=== PATIENT | female | born 1960 | race Asian ===

== ENCOUNTER 2024-11-07 09:37 | Outpatient (AMB) | payer OTHER, SELFPAY ==
--- NOTE | 2024-11-07 10:05 | A.OFFVIS_ITS ---
Vital Signs 11/07/24 10:08 Height 5 ft 2 in Weight 182 lb 12.211 oz BMI 33.4 BP 144/72 H Blood Pressure Location Lt brachial Position Sitting Pulse 85 Pulse Source Pulse Oximeter Intake Visit Reasons: Hyperlipidemia Intake Note: New patient externally referred for Hyperlipidemia. Retail Loan Originator Assistant Required: Yes Retail Loan Originator Assistant Language: Yoruba Retail Loan Originator Assistant Services: Retail Loan Originator Assistant Offered & Declined Accompanied by: Daughter Allergies nicotine Allergy (Unknown, Verified 11/07/24 10:05) Unknown lisinopril Adverse Reaction (Unknown, Verified 11/07/24 10:05) Unknown IV dye Allergy (Unknown, Uncoded 11/07/24 10:09) Anaphylaxis Medication List - Last Reconciled 11/07/24 by Enrique Mendoza MD albuterol sulfate 90 mcg/actuation (Ventolin HFA) inhalation ammonium lactate 12% appl topical aspirin mg PO DAILY atorvastatin mg PO DAILY betamethasone dipropionate 0.05% topical blood sugar diagnostic (FreeStyle Lite Strips) As directed cholecalciferol (vitamin D3) 1,250 mcg PO QWEEK cyanocobalamin (vitamin B-12) mcg PO DAILY dulaglutide (Trulicity) mg subcut fluticasone propionate 50 mcg/actuation intranasal irbesartan-hydrochlorothiazide 300-12.5 mg tabs PO DAILY isosorbide mononitrate ER mg PO DAILY ketotifen fumarate 0.025%(0.035%) drps ophthalmic (eye) metformin mg PO ONCE metoclopramide HCl mg PO DAILY metoprolol succinate ER mg PO DAILY omeprazole mg PO DAILY oxybutynin chloride ER mg PO DAILY tacrolimus 0.1% topical HPI Comments Details: This is a 64-year-old female referred to endocrinology for management of hyperlipidemia . Patient has a history of hyperlipidemia for 8 yrs . She has tried atorvastatin 40 mg once day but this was stopped due to intolerance and slight elevation in liver enzymes possibility of fatty liver . She is currently not on pharmacologic therapy for a month had muscle pain r . There is a no history of coronary artery disease or stroke. Father had hx of CVA There is also a history of uncontrolled diabetes type 2.On metformin and Trulicity [facility] Medical History (Updated 11/07/24 @ 10:16 by Enrique Mendoza MD) Hyperlipidemia Surgical History History of kidney surgery Hx of cholecystectomy History of ear surgery Family History Mother No known health problems Father High blood pressure Social History Alcohol intake: never Patient Tobacco Use Status: Former Tobacco user Physical Exam Vital Signs: BMI result Body Mass Index 33.4 Const Other: Absence of carotid bruits. Thyroid gland is normal size weighs about 15 g. There are no thyroid nodules palpated. There is a absence of an arcus senilis Assessment & Plan Assessment & Plan (1) Hyperlipidemia: Code(s): E78.5 - Hyperlipidemia, unspecified Category: Medical Plan: This is a 64-year-old female referred to endocrinology for management of hyperlipidemia. LDL goal should be<70. Patient is currently not on pharmacologic therapy. Because of muscle aches and increase in liver enzymes. The increase in liver enzymes is probably result of fatty liver and not related to the statin. Plan is to reinitiate a statin namely rosuvastatin 20 mg and will recheck lipid profile along with liver panel in 6 weeks. If patient tolerates rosuvastatin will titrate to keep LDL <70 or of heart disease is diagnosed <50 . If patient does not tolerate the statin, could consider use of a PCSK9 inhibitor particularly of coronary artery disease diagnosed The visit today was not for diabetes but I did take the liberty of referring the patient to a life skills educator and word processor operator. I also made an appointment for the primary care diabetes team here to manage the diabetes instruct the patient to check her point of cares pre and post meals and bring the glucometer with the to the visit. She mentioned she does not have a history of diabetes in the family and the provider that sees her for the diabetes might want to consider checking anti-tiago 65 antibody to rule out MASHA Orders: Orders Lipid Panel 6 Weeks E78.5 - Hyperlipidemia, unspecified Liver Panel Today E78.5 - Hyperlipidemia, unspecified Referrals Diabetes Education Referral E11.9 - Type 2 diabetes mellitus without complications Endocrinology Referral E11.9 - Type 2 diabetes mellitus without complications Nutrition/Dietitian Referral E11.9 - Type 2 diabetes mellitus without complications Medications: New rosuvastatin (Crestor) 20 mg PO DAILY 30 tabs 4RF Coding Level of Care Code New Pt Level 4 (96959) Diagnoses Hyperlipidemia E78.5
[2024-11-07 10:08] VITALS: BP 144/72; PULSE 85; BMI 33.4
--- OUTSIDE RECORDS SUMMARY | 2024-11-07 11:16 | XMS_ITS | Encounter Summary ---
Author Organization [facility] Address [address] [place] [address] Care Team Providers Care Pin Maker Name Role Phone Magdaleno Law MD Primary Care Provider [phone] Encounter Details Date Type Department Care Team (Late Contact Info) Description 10/24/2024 Telephone Gastroenterology - [address] [place] [phone] Kem Germain PA [address] [place] [address] [place] [phone] Social History Tobacco Use Types Packs/Day Years Used Date Smoking Tobacco: Former Cigarettes Alcohol Use Standard Drinks/Week Comments Not Currently 0 (1 standard drink = 0.6 oz pur e alcohol) Sex and Gender Information Value Date Recorded Sex Assigned at Not on file Gender Identity Not on file Sexual Orientation Not on file Job Start Date Occupation Industry Not on file Not on file Not on file documented as of this encounter Progress Notes * GHISLAINE Hunter - 10/24/2024 5:45 PM EST I spoke with pt's daughter. LFTS the same. I expected them to improve off the statin. New meds? Isorsobide and ASA as of Aug. Prednisone and antibiotic a couple of weeks ago for respiratory infection. Will re check labs in 1 mth documented in this encounter Plan of Treatment Upcoming Encounters Date Type Department Care Team ([facility] Contact Info) Description 01/23/2025 10:20 AM EDT Office Visit Gastroenterology - [address] [place] [phone] Kem Germain PA [address] [place] [phone] Scheduled Orders Name Type Priority Associated Diagnoses Orde r Schedule Hepatic function panel Lab Routine Elevated LFTs 1 Occurrences starting 10/24/2024 until 12/22/2024 documented as of this encounter Visit Diagnoses Diagnosis Elevated LFTs- Primary Other abnormal blood chemistry documented in this encounter Care Teams Pin Maker Relationship Specialty Start Date End Date Magdaleno Law MD [address] [place] [phone] PCP - General Internal Medicine 10/12/24 documented as of this encounter
--- OUTSIDE RECORDS SUMMARY | 2024-11-07 11:16 | XMS_ITS | Encounter Summary ---
Author Organization [facility] Address [address] [place] [address] Care Team Providers Care Capacitor Assembler Name Role Phone Magdaleno Law MD Primary Care Provider [phone] Reason for Visit * Reason Comments Follow-up 6 mo fu Encounter Details Date Type Department Care Team ([facility] st Contact Info) Description 10/24/2024 10:20 AM EST Office Visit Gastroenterology - [address] [phone] Kem Germain PA [address] [phone] Elevated LFTs (Primary Dx); Upper abdominal pain; Chronic constipation Social History Tobacco Use Types Packs/Day Years Used Date Smoking Tobacco: Former Cigarettes Tobacco Cessation:Counseling Given: Not Answered Alcohol Use Standard Drinks/Week Comments Not Currently 0 (1 standard drink = 0.6 oz pur e alcohol) Sex and Gender Information Value Date Recorded Sex Assigned at Not on file Gender Identity Not on file Sexual Orientation Not on file Job Start Date Occupation Industry Not on file Not on file Not on file documented as of this encounter Last Filed Vital Signs Vital Sign Reading Time Taken Comments Blood Pressure - - Pulse - - Temperature - - Respiratory Rate - - Oxygen Saturation - - Inhaled Oxygen Concentration - - Weight 83 kg (183 lb) 10/24/2024 10:23 AM EST Height 157.5 cm (5' 2 ) 10/24/2024 10:23 AM EST Body Mass Index 33.47 10/24/2024 10:23 AM EST documented in this encounter Ordered Prescriptions Prescription Sig Dispensed Refills Start Date End Da te omeprazole OTC (PriLOSEC OTC) 20 mg EC tabletIndications:Upper abdominal pain Take 1 tablet (20 mg total) by mouth 1 (one) time each day. Do not crush, chew, or split. 30 tablet 11 10/24/2024 10/24/2025 polyethylene glycol (MIRALAX) 17 gram packetIndications:Chronic constipation Take 17 g by mouth 1 (one) time each day. 1530 g 3 10/24/2024 10/24/2025 documented in this encounter Progress Notes * GHISLAINE Hunter - 10/24/2024 10:20 AM EST Subjective Last Colononscopy/EGD: Colon/EGD 07/2020 - SSA x1, left-sided tics (5 yr); EGD - nl, no specimen collected HPI: Juan Carlos Melgoza is a 64 y.o. old female who was originally referred to us by Magdaleno Law MD now presents to the gastroenterology department today for a follow up for elevated LFTs, constipation and chronic upper abdominal pain. Her daughter was present for the appointment and helped translate. I started to see her last December for the abnormal LFTs. She was holding her atorvastatin when I s aw her at that time and the AST and ALT had normalized. The abnormal LFT workup was overall unremarkable. An ultrasound in October of last year noted fatty liver. She is status postcholecystectomy. The common bile duct measured 6 mm with no filling defect. She ended up restarting the statin a couple of months later. Her LFTs have been gradually increasing since I checked last May. Spoke with her daughter in the fall about that and wanted her to follow-up with Dr. Jose Alejandro Weston about stopping the statin as I was suspicious that was the cause. The atorvastatin is listed as being taken although the patient claims she has not taken it in a month. I will repeat labs at this point. She has ongoing i ssues with constipation. She is fine as long she is taking MiraLAX although she has not been takingit. She has generalized abdominal pain postprandially. She also has chronic epigastric pain. She described right upper quadrant pain postprandially after eating meat. She was on omeprazole last year and a lot of the upper abdominal pain was better when taking it. She is not currently taking the omeprazole 20 mg at all. She denied alarm symptoms. Review of Systems Constitutional: Negative. Respiratory: Negative. Cardiovascular: Negative. Gastrointestinal: Positive for abdominal pain (RUQ, epigastric, LUQ, generalized) and constipation. Genitourinary: Negative. PROBLEM LIST: Patient Active Problem List Diagnosis Adenomatous polyp of colon Diabetes (CMS/HCC) Hyperlipidemia Eczema Gastroesophageal reflux disease without esophagitis COPD (chronic obstructive pulmonary disease) (CMS/HCC) OAB (overactive bladder) PAST MEDICAL HISTORY: No past medical history on file. PAST SURGICAL HISTORY: Past Surgical History: Procedure Laterality Date COLONOSCOPY 07/2020 SSAx1, left sided tics (5 yr) COLONOSCOPY 03/2011 nl, fair prep (5 yr) ESOPHAGOGASTRODUODENOSCOPY 07/2020 nl SOCIAL HISTORY: Social History Tobacco Use Smoking status: Former Types: Cigarettes Smokeless tobacco: Not on file Substance Use Topics Alcohol use: Not Currently FAMILY HISTORY: No family history on file. ACTIVE MEDICATIONS: Current Outpatient Medications Medication Sig Dispense Refill aspirin 81 mg EC tablet Take 1 tablet (81 mg total) by mouth 1 (one) time each day. for 90 days atorvastatin (LIPITOR) 40 mg tablet Take 1 tablet (40 mg total) by mouth at bedtime. cholecalciferol (VITAMIN D-3) 1,250 mcg (50,000 unit) capsule TAKE 1 CAPSULE BY MOUTH ONCE A WEEK DIRECTED cyanocobalamin (VITAMIN B-12) 1,000 mcg tablet Take 1 tablet (1,000 mcg total) by mouth 1 (one) time each day. irbesartan-hydroCHLOROthiazide (AVALIDE) 300-12.5 mg per tablet Take 1 tablet by mouth 1 (one) timeeach day. isosorbide mononitrate (IMDUR) 30 mg 24 hr tablet take 1 tablet by mouth every day in the morning for 90 days metFORMIN (GLUCOPHAGE) 500 mg tablet omeprazole OTC (PriLOSEC OTC) 20 mg EC tablet Take 1 tablet (20 mg total) by mouth 1 (one) time each day. Do not crush, chew, or split. Symbicort 160-4.5 mcg/actuation inhaler Inhale 2 puffs by mouth 2 (two) times a day. Trulicity 0.75 mg/0.5 mL pen injector injection INJECT 0.75MG SUBCUTANEOUSLY ONCE A WEEK Ventolin HFA 90 mcg/actuation inhaler omeprazole OTC (PriLOSEC OTC) 20 mg EC tablet Take 1 tablet (20 mg total) by mouth 1 (one) time each day. Do not crush, chew, or split. 30 tablet 11 polyethylene glycol (MIRALAX) 17 gram packet Take 17 g by mouth 1 (one) time each day. 1530 g 3 No current facility-administered medications for this visit. ALLERGIES: Allergies Allergen Reactions Iodinated Contrast Media Physical Exam Constitutional: Appearance: Normal appearance. HENT: Head: Normocephalic. Cardiovascular: Rate and Rhythm: Normal rate and regular rhythm. Pulmonary: Effort: Pulmonary effort is normal. Breath sounds: Normal breath sounds. Abdominal: General: Bowel sounds are normal. There is no distension. Palpations: Abdomen is soft. There is no mass. Tenderness: There is no abdominal tenderness (epigastric area). There is no guarding or rebound. Skin: General: Skin is warm. Neurological: Mental Status: She is alert and oriented to person, place, and time. Psychiatric: Mood and Affect: Mood normal. Behavior: Behavior normal. IMPRESSION: 1. Elevated LFTs 2. Upper abdominal pain 3. Chronic constipation Assessment/Plan Assessment & Plan Elevated LFTs Orders: Hepatic function panel; Future Upper abdominal pain Orders: Hepatic function panel; Future omeprazole OTC (PriLOSEC OTC) 20 mg EC tablet; Take 1 tablet (20 mg total) by mouth 1 (one) time each day. Do not crush, chew, or split. Chronic constipation Orders: polyethylene glycol (MIRALAX) 17 gram packet; Take 17 g by mouth 1 (one) time each day. The LFTs have gradually increased since May. I am suspicious that it is due to the statin given that it was restarted after the labs normalized. There is also fatty liver present. We are rechecking the LFTs today. She may need to discuss an alternative to atorvastatin with Dr. Law. She is seeing him tomorrow. I asked her to restart the omeprazole for the epigastric and right upper quadrant pain which do improve when she is on the omeprazole. An upper endoscopy was unremarkable in 2019 for epigastric pain and dyspepsia. A prescription was placed for MiraLAX for her to start taking daily. I suspect the generalized abdominal pain after eating is related to the constipation and her daughter will let me know if she doesnot improve once restarting omeprazole and MiraLAX. Follow up in about 3 months (around 01/22/2025). 08 pt GHISLAINE Hunter 1:01 PM EST documented in this encounter Plan of Treatment Upcoming Encounters Date Type Department Care Team (Late st Contact Info) Description 01/23/2025 10:20 AM EDT Office Visit Gastroenterology - [address] [place] [phone] Kem Germain PA [address] [place] [address] documented as of this encounter Results * (ABNORMAL) Hepatic function panel (10/24/2024 11:06 AM EST) Total Protein 7.9 6.0 - 8.0 g/dL LAB CHEMISTRY METHOD 10/24/2024 11:59 AM [facility] Albumin 3.4 3.2 - 5.0 g/dL LAB CHEMISTRY METHOD 10/24/2024 11:59 AM [facility] Total Bilirubin 0.6 0.0 - 1.4 mg/dL LAB CHEMISTRY METHOD 10/24/2024 11:59 AM [facility] Bilirubin, Direct 0.2 0.0 - 0.3 mg/dL LAB CHEMISTRY METHOD 10/24/2024 11:59 AM [facility] Bilirubin, Indirect 0.4 0.0 - 1.1 mg/dL LAB CHEMISTRY METHOD 10/24/2024 11:59 AM [facility] ALT (SGPT) 77(H) 10 - 60 unit/L LAB CHEMISTRY METHOD 10/24/2024 11:59 AM [facility] AST (SGOT) 78(H) 10 - 42 unit/L LAB CHEMISTRY METHOD 10/24/2024 11:59 AM [facility] Alkaline Phosphatase 119 42 - 121 unit/L LAB CHEMISTRY METHOD 10/24/2024 11:59 AM EST [facility] Blood Venous blood specimen / Unknown Venipuncture / Unknown 10/24/2024 11:06 AM EST 10/24/2024 11:16 AM EST Kem [facility] [address] [place] [address], documented in this encounter Visit Diagnoses Diagnosis Elevated LFTs- Primary Other abnormal blood chemistry Upper abdominal pain Chronic constipation Unspecified constipation documented in this encounter Historical Medications * This list may reflect changes made after this encounter. Medication Sig Dispensed Refills Start Date End Date omeprazole OTC (PriLOSEC OTC) 20 mg EC tablet Take 1 tablet (20 mg total) by mouth 1 (one) time each day. Do not crush, chew, or split. metFORMIN (GLUCOPHAGE) 500 mg tablet 10/12/2024 isosorbide mononitrate (IMDUR) 30 mg 24 hr tablet take 1 tablet by mouth every day in the morning for 90 days 07/27/2024 cyanocobalamin (VITAMIN B-12) 1,000 mcg tablet Take 1 tablet (1,000 mcg total) by mouth 1 (one) time each day. 09/09/2024 cholecalciferol (VITAMIN D-3) 1,250 mcg (50,000 unit) capsule TAKE 1 CAPSULE BY MOUTH ONCE A WEEK DIRECTED 08/14/2024 Ventolin HFA 90 mcg/actuation inhaler 10/22/2024 atorvastatin (LIPITOR) 40 mg tablet Take 1 tablet (40 mg total) by mouth at bedtime. 06/13/2024 aspirin 81 mg EC tablet Take 1 tablet (81 mg total) by mouth 1 (one) time each day. for 90 days 07/27/2024 Symbicort 160-4.5 mcg/actuation inhaler Inhale 2 puffs by mouth 2 (two) times a day. 10/05/2024 Trulicity 0.75 mg/0.5 mL pen injector injection INJECT 0.75MG SUBCUTANEOUSLY ONCE A WEEK 09/19/2024 irbesartan-hydroCHLORO thiazide (AVALIDE) 300-12.5 mg per tablet Take 1 tablet by mouth 1 (one) time each day. 07/25/2024 added in this encounter Care Teams Capacitor Assembler Relationship Specialty Start Date End Date Magdaleno Law MD [address] [place] [id number] PCP - General Internal Medicine 10/12/24 documented as of this encounter
--- OUTSIDE RECORDS SUMMARY | 2024-11-07 11:16 | XMS_ITS | Encounter Summary ---
Author Organization [facility] Address [address] [place] [phone] Care Team Providers Care Scheduling Representative Name Role Phone Magdaleno Law MD Primary Care Provider [phone] Encounter Details Date Type Department Care Team (Late Contact Info) Description 09/08/2024 Lab Requisition [facility] Lab [address] [facility] [place] [phone] Manule Moore MD [address] [address] Abnormal results of liver function studies Social History Tobacco Use Types Packs/Day Years Used Date Smoking Tobacco: Never Assessed Sex and Gender Information Value Date Recorded Sex Assigned at Not on file Gender Identity Not on file Sexual Orientation Not on file Job Start Date Occupation Industry Not on file Not on file Not on file documented as of this encounter Plan of Treatment Upcoming Encounters Date Type Department Care Team (Late Contact Info) Description 01/23/2025 10:20 AM EDT Office Visit Gastroenterology - 299 [facility] [address] [phone] Kem Germain PA [address] [address] documented as of this encounter Procedures Procedure Name Priority Date/Time Associated Diagnosis Comments HEPATIC FUNCTION PANEL Routine 09/08/2024 1:20 PM EST Abnormal results of liver function studies documented in this encounter Results * (ABNORMAL) Hepatic function panel (09/08/2024 1:20 PM EST) Total Protein 8.2(H) 6.0 - 8.0 g/dL LAB CHEMISTRY METHOD 09/08/2024 2:03 PM [facility] Albumin 3.9 3.2 - 5.0 g/dL LAB CHEMISTRY METHOD 09/08/2024 2:03 PM [facility] Total Bilirubin 0.5 0.0 - 1.4 mg/dL LAB CHEMISTRY METHOD 09/08/2024 2:03 PM [facility] Bilirubin, Direct 0.2 0.0 - 0.3 mg/dL LAB CHEMISTRY METHOD 09/08/2024 2:03 PM [facility] Bilirubin, Indirect 0.3 0.0 - 1.1 mg/dL LAB CHEMISTRY METHOD 09/08/2024 2:03 PM [facility] ALT (SGPT) 75(H) 10 - 60 unit/L LAB CHEMISTRY METHOD 09/08/2024 2:03 PM [facility] AST (SGOT) 55(H) 10 - 42 unit/L LAB CHEMISTRY METHOD 09/08/2024 2:03 PM [facility] Alkaline Phosphatase 115 42 - 121 unit/L LAB CHEMISTRY METHOD 09/08/2024 2:03 PM [facility] Blood Venous blood specimen / Unknown 09/08/2024 1:20 PM EST 09/08/2024 1:20 PM EST Manuel Moore MD LAB BLOOD ORDERABLE [facility] [address] [place] [address], documented in this encounter Visit Diagnoses Diagnosis Abnormal results of liver function studies Nonspecific abnormal results of liver function study documented in this encounter Care Teams Scheduling Representative Relationship Specialty Start Date End Date Magdaleno Law MD [address] [place] [phone] PCP - General Internal Medicine 10/12/24 documented as of this encounter
--- OUTSIDE RECORDS SUMMARY | 2024-11-07 11:16 | XMS_ITS | Clinical Summary ---
Author Organization LL [address] [place] [address] [place] [phone] Phone Care Team Providers Care Mission Worker Name Role Phone Clau Law MD Primary Care Provider [phone] Allergies Active Allergy Reactions Criticality Noted Date Comments Iodinated Contrast Media 10/24/2024 Medications Medication Sig Dispensed Refills Start Date End Date Status irbesartan-hydroCH LOROthiazide (AVALIDE) 300-12.5 mg per tablet Take 1 tablet by mouth 1 (one) time each day. 07/25/2024 Active Trulicity 0.75 mg/0.5 mL pen injector injection INJECT 0.75MG SUBCUTANEOUSLY ONCE A WEEK 09/19/2024 Active Symbicort 160-4.5 mcg/actuation inhaler Inhale 2 puffs by mouth 2 (two) times a day. 10/05/2024 Active aspirin 81 mg EC tablet Take 1 tablet (81 mg total) by mouth 1 (one) time each day. for 90 days 07/27/2024 Active atorvastatin (LIPITOR) 40 mg tablet Take 1 tablet (40 mg total) by mouth at bedtime. 06/13/2024 Active Ventolin HFA 90 mcg/actuation inhaler 10/22/2024 Active cholecalciferol (VITAMIN D-3) 1,250 mcg (50,000 unit) capsule TAKE 1 CAPSULE BY MOUTH ONCE A WEEK DIRECTED 08/14/2024 Active cyanocobalamin (VITAMIN B-12) 1,000 mcg tablet Take 1 tablet (1,000 mcg total) by mouth 1 (one) time each day. 09/09/2024 Active isosorbide mononitrate (IMDUR) 30 mg 24 hr tablet take 1 tablet by mouth every day in the morning for 90 days 07/27/2024 Active metFORMIN (GLUCOPHAGE) 500 mg tablet 10/12/2024 Active omeprazole OTC (PriLOSEC OTC) 20 mg EC tablet Take 1 tablet (20 mg total) by mouth 1 (one) time each day. Do not crush, chew, or split. Active polyethylene glycol (MIRALAX) 17 gram packetIndications: Chronic constipation Take 17 g by mouth 1 (one) time each day. 1530 g 3 10/24/2024 Active omeprazole OTC (PriLOSEC OTC) 20 mg EC tabletIndications: Upper abdominal pain Take 1 tablet (20 mg total) by mouth 1 (one) time each day. Do not crush, chew, or split. 30 tablet 11 10/24/2024 Active Active Problems Problem Noted Date Diagnosed Date Adenomatous polyp of colon 10/24/2024 Diabetes 10/24/2024 Hyperlipidemia 10/24/2024 Eczema 10/24/2024 Gastroesophageal reflux disease without esophagi tis 10/24/2024 COPD (chronic obstructive pulmonary disease) OAB (overactive bladder) 10/24/2024 Encounters Date Type Department Care Team Description 10/24/2024 10:20 AM EST Office Visit Gastroenterology - [address] [phone] Kem Germain PA Elevated LFTs (Primary Dx); Upper abdominal pain; Chronic constipation 10/24/2024 Telephone Gastroenterology - [address] [place] [phone] Kem Germain PA 09/13/2024 Telephone Gastroenterology - [address] [phone] Kem Germain PA 09/08/2024 Lab Requisition [facility] - Main Lab [address] [facility] [place] [phone] Manuel Moore MD Abnormal results of liver function studies from Last 3 Months Surgical History Surgery Date Site/Laterality Comments COLONOSCOPY 07/10/2020 - 08/09/2020 SSAx1, left sided tics (5 yr) ESOPHAGOGASTRODUODENOSCOPY 07/10/2020 - 08/09/2020 nl COLONOSCOPY 03/10/2011 - 04/08/2011 nl, fair prep (5 yr) Social History Tobacco Use Types Packs/Day Years [...] file Not on file Not on file Obstetrics History Last Filed Vital Signs Vital Sign Reading Time Taken Comments Blood Pressure - - Pulse - - Temperature - - Respiratory Rate - - Oxygen Saturation - - Inhaled Oxygen Concentration - - Weight 83 kg (183 lb) 10/24/2024 10:23 AM EST Height 157.5 cm (5' 2 ) 10/24/2024 10:23 AM EST Body Mass Index 33.47 10/24/2024 10:23 AM EST Plan of Treatment Upcoming Encounters Date Type Department Care Team (Late st Contact Info) Description 01/23/2025 10:20 AM EDT Office Visit Gastroenterology - [address] [facility] [address] [place] [phone] Kem Germain PA [address] [facility] [address] [place] [address] [place] [phone] Health Maintenance Due Date Last Done Comments Diabetes: Annual GFR (Glomerular Filtration Rate) 1960 Pneumococcal Vaccine: Pediatrics (0 to 5 Years) and At-Risk Patients (6 to 64 Years) (1 of 2 - PCV) 1968 Diabetes: Annual Foot Exam 1972 Diabetes: Annual Retina Eye Exam 1972 DTaP,Tdap,and Td Vaccines (1 - Tdap) 1981 Cervical Cancer Screening: Pap Smear 1983 Zoster Vaccines (1 of 2) 2012 Cholesterol Screening (Lipid Panel) 09/06/2022 Colorectal Cancer Screening: Colonoscopy 09/06/2022 Depression Screening 09/06/2022 HIV Screening 09/06/2022 Hepatitis C Screening 09/06/2022 Social Influencers of Health Screening 09/06/2022 RSV Immunization Patients 60+ Years Old (1 - Risk 60-74 years 1-dose series) 2022 COVID-19 Vaccine ( season) 2024 05/04/2021, 04/03/2021 Influenza Vaccine (#1) 2024 06/01/2017 Diabetes: Annual Urine Albumin-Creatinine Ratio (uACR) 10/24/2024 Diabetes: Blood Sugar Control Test (HGBA1C) 10/24/2024 Breast Cancer Screening 01/25/2026 01/26/20 24, 01/23/2023, 01/30/2021, Additional history exists HIB Vaccines Aged Out No longer eligi ble based on patient's age to complete this topic HPV Vaccines Aged Out No longer eligi ble based on patient's age to complete this topic Hepatitis A Vaccines Aged Out No long er eligible based on patient's age to complete this topic Hepatitis B Vaccines Aged Out No long er eligible based on patient's age to complete this topic IPV Vaccines Aged Out No longer eligi ble based on patient's age to complete this topic MMR Vaccines Aged Out No longer eligi ble based on patient's age to complete this topic Meningococcal ACWY Vaccine Aged Out N o longer eligible based on patient's age to complete this topic RSV Immunization Patients Under 20 months Aged Out No longer eligible based on patient's age to complete this topic Varicella Vaccines Aged Out No longer eligible based on patient's age to complete this topic Procedures Procedure Name Priority Date/Time Associated Diagnosis Comments HEPATIC FUNCTION PANEL Routine 10/24/2024 11:06 AM EST Elevated LFTs Upper abdominal pain HEPATIC FUNCTION PANEL Routine 09/08/2024 1:20 PM EST Abnormal results of liver function studies HITESH SCREENING DIGITAL Routine 01/26/2024 10:43 AM EDT Encounter for screening mammogram for malignant neoplasm of breast from Last 3 Months or Most Recently Relevant to Health Maintenance Results * (ABNORMAL) Hepatic function panel (10/24/2024 11:06 AM EST) Only the most recent of2 resultswithin the time period is included. Total Protein 7.9 6.0 - 8.0 g/dL [...] METHOD 10/24/2024 11:59 AM [facility] Blood Venous blood specimen / Unknown Venipuncture / Unknown 10/24/2024 11:06 AM EST 10/24/2024 11:16 AM EST Kem [facility] BLOOD ORDERABLES [facility] [address] [place] [address], * HITESH SCREENING DIGITAL (01/26/2024 10:43 AM EDT) Anatomical Region Laterality Modality Mammography 01/26/2024 10:0 4 AM EDT Narrative 01/26/2024 10:43 AM EDT [facility] Diagnostic Imaging Department [address] [place] [address] Patient: ??JUAN CARLOS MELGOZA ?/Age/Sex: 1960 - 63 - F Unit#: ??[id number] ? Location/Status: ??SPDIMAM/REG CLI ? Mnemonic/Ordering Site: ??DIGSC/SPMAM Ordering Physician: ??CLAU LAW MD [facility] Screening Digital - 01/26/24 - 1022 Report Status:Signed EXAM: [facility] Screening Digital EXAM DATE AND TIME: 01/26/2024 10:23 AM HISTORY: ??Annual screening COMPARISON: ??Multiple exams dating back to 2018 TECHNIQUE: Bilateral digital breast tomosynthesis was performed in the CC and MLO projections. Computer aided detection with Varthana 3D 3.1 was employed. TISSUE DENSITY: b. There are scattered areas of fibroglandular density. FINDINGS: No suspicious masses, grouped microcalcifications, or areas of architectural distortion are seen. The skin and vascularity are unremarkable. IMPRESSION: Stable mammographic appearance of the breasts. ??No evidence of malignancy is seen. A negative mammogram in the presence of a clinically suspicious palpable abnormality does not preclude the possibility of malignancy or alter the indications for biopsy. BI-RADS: ??Category 1: Negative RECOMMENDATION(S): 1: Routine screening mammogram BILATERAL in 1 year. 3341F, 7025F Dictating Physician: ??PEREZ KOROMA MD Electronically Signed by: ??PEREZ KOROMA MD Dic Date/Time: ??01/26/24 1042 Sign date/Time: ??01/26/24 1043 Procedure Note Perez Koroma MD - 05/28/2024 [facility] Diagnostic Imaging Department [address] [place] [id number] Patient: JLBRENDANJUAN CARLOSO.B./Age/Sex: 1960 - 63 - F Unit#: [id number] Location/Status: SPDIMAM/REG CLI Mnemonic/Ordering Site: [facility] Ordering Physician: CLAU LAW MD [facility] Screening Digital - 01/26/24 - 1022 Report Status:Signed EXAM: [facility] Screening Digital EXAM DATE AND TIME: 01/26/2024 10:23 AM HISTORY: Annual screening COMPARISON: Multiple exams dating back to 2018 TECHNIQUE: Bilateral digital breast tomosynthesis was performed in the CCand MLO projections. Computer aided detection with Varthana 3D 3.1was employed. TISSUE DENSITY: b. There are scattered areas of fibroglandular density. FINDINGS: No suspicious masses, grouped microcalcifications, or areas ofarchitectural distortion are seen. The skin and vascularity are unremarkable. IMPRESSION: Stable mammographic appearance of the breasts. No evidence of malignancyis seen. A negative mammogram in the presence of a clinically suspicious palpable abnormality does not preclude the possibility of malignancy or alter the indications for biopsy. BI-RADS: Category 1: Negative RECOMMENDATION(S): 1: Routine screening mammogram BILATERAL in 1 year. 3341F, 7058F Dictating Physician: PEREZ KOROMA MD Electronically Signed by: PEREZ KOROMA MD Dic Date/Time: 01/26/24 1042 Sign date/Time: 01/26/24 1043 Clau Law MD IMG BI PROCEDURES from Last 3 Months or Most Recently Relevant to Health Maintenance Care Teams Mission Worker Relationship Specialty Start Date End Date Clau Law MD [address] [place] [id number] PCP - General Internal Medicine 10/12/24
== END 2024-11-07 11:01 | disposition home or self-care (01) ==
PROVIDERS: PCP Internal Medicine; Visit Provider Internal Medicine Endocrinology, Diabetes & Metabolism
DX: E78.5 Hyperlipidemia, unspecified (principal)
CPT/HCPCS: 99204

== ENCOUNTER → 2024-11-07 09:37 | Outpatient (BNVA) | payer OTHER, SELFPAY | PROVIDERS: PCP Internal Medicine; Visit Provider Internal Medicine Endocrinology, Diabetes & Metabolism | DX: E78.5 Hyperlipidemia, unspecified (principal) | CPT/HCPCS: 99202 ==

== ENCOUNTER → 2024-11-14 10:52 | Outpatient (BNVA) | payer OTHER, SELFPAY | PROVIDERS: PCP Internal Medicine; Visit Provider Internal Medicine | DX: E11.65 Type 2 diabetes mellitus with hyperglycemia (principal); Z79.85 Long-term (current) use of injectable non-insulin antidiabetic drugs; Z79.84 Long term (current) use of oral hypoglycemic drugs | CPT/HCPCS: 82947; 83036; 99212 ==

== ENCOUNTER 2024-12-05 11:04 | Outpatient (AMB) | payer OTHER, SELFPAY ==
--- NOTE | 2024-12-05 12:19 | A.OFFVIS_ITS ---
VS Expanded 12/05/24 12:23 Height 5 ft 2 in Weight 180 lb 12 oz BMI 33.1 Intake Visit Reasons: Type 2 diabetes mellitus without complications Allergies nicotine Allergy (Unknown, Verified 11/14/24 11:06) Unknown lisinopril Adverse Reaction (Unknown, Verified 11/14/24 11:06) Unknown IV dye Allergy (Unknown, Uncoded 11/14/24 11:06) Anaphylaxis Nutrition Presentation Details: Pt presents for MNT for T2DM Pt declined interpreting services Pt and daughter speak Albanian and Eng. Food frequency fruits: 1-2/d vex/wk starches> 20 /d dairy: 0-1/d prot: varies etoh/smoking denies physical activity : daily life activiteis BS Monitoring Most Recent Diabetes Results: No Data to Display CZF-Jhogzzc-Xo.Jeor Equation Height: 5 ft 2 in Weight: 180 lb Resting Metabolic Rate: 1333.86 Calculated Activity Level: Sedentary Calories Needed to Maintain Weight: 1600.63 Diagnosis Nutrition problem #1: food nutri know defi As related to (etiology) #1: diagnosis As evidenced by (sign/symptom) #1: food recall [facility] Medical History Hyperlipidemia Surgical History History of kidney surgery Hx of cholecystectomy History of ear surgery Family History Mother No known health problems Father High blood pressure Social History Alcohol intake: never Patient Tobacco Use Status: Former Tobacco user Assessment & Plan Assessment & Plan (1) Type 2 diabetes mellitus: Code(s): E11.9 - Type 2 diabetes mellitus without complications Category: Medical Qualifiers: Diabetes mellitus terminal operator insulin use: without [facility] use Diabetes mellitus complication status: with hyperglycemia Qualified Code(s): E11.65 - Type 2 diabetes mellitus with hyperglycemia Plan: Wt: 82 Kg ( 12/04 ) Est kcal needs as per MSJ: 1600 (40% carb, 30% protein/fat) Est fluid needs as per 25-30 ml/d: 2500 Est prot per day as per 1 g/kg bw: 82 Recommend fiber intake : 8-10 g per day and gradually increase to 25-28 g per day for women and 35-38 g for men or as tolerated Recommend sodium intake per day : less than 2000 mg Educated patient on: ( R = reviewed V = verbalizes understanding N/R = needs review N/A = not applicable * Food sources of carbohydrate, adequate serving sizes and its role in various health conditions: R (diabetes care Albanian info provided as well) * Differences between complex carbohydrates a simple carbohydrates, role of fiber in diet: R V N/R * Lean protein sources of foods: R V NR * Differences between types of fats and role in diet (mono on saturated fat fatty acids, saturated fatty acids, trans fats): R V N/R * Food sources of sodium in salt and healthy modifications for heart health in kidney health: R V R/V * Vitamins and minerals: R V N/R * Healthy plate method concept: R - information in Albanian provided from [facility] * Physical activity: Benefits a precaution: R V N/R * Hypoglycemia protocol (rule of 15): R V N/R * Dietary prevention of Hyperglycemia: R V R/V Medications: On Hold glipizide ER Hold Comment: Doctor's Order 10 mg PO DAILY 90 tabs 3RF Patient Instructions: Follow healthy plate method reducing total carbs to 45 g per meal , 3 meals/day and snack 0-20 g carbs Keep hydrated by having water with meals /snacks Coding Level of Care Code Nutr Indiv Intake (05339) Diagnoses Type 2 diabetes mellitus with hyperglycemia, without long-term current use of insulin E11.65 Diabetes mellitus [facility] insulin use: without terminal operator use Diabetes mellitus complication status: with hyperglycemia Time Spent (min) 30
[2024-12-05 12:23] VITALS: BMI 33.1
[2024-12-05 12:27] VITALS: BMI 32.9
--- OUTSIDE RECORDS SUMMARY | 2024-12-05 13:53 | XMS_ITS | Encounter Summary ---
Author Organization [facility] Address [address] [place] [phone] Care Team Providers Care International Nurse Name Role Phone Magdaleno Law MD Primary Care Provider [phone] Reason for Visit * Reason Onset Date Comments Results 12/04/2024 Encounter Details Date Type Department Care Team (Late st Contact Info) Description 12/04/2024 Telephone Gastroenterology - [address] [place] [phone] Chani Vuong MA Results Social History Tobacco Use Types Packs/Day Years Used Date Smoking Tobacco: Former Cigarettes Alcohol Use Standard Drinks/Week Comments Not Currently 0 (1 standard drink = 0.6 oz pur e alcohol) Comments Unknown Sex and Gender Information Value Date Recorded Sex Assigned at Not on file Legal Sex Female 9:22 AM EST Gender Identity Not on file Sexual Orientation Not on file documented as of this encounter Progress Notes * Chani Vuong MA - 12/04/2024 11:23 AM EST I let pt know that her lfts are about the same, maybe a little BETTER. She started atorvastatin thebeginning of the month and is seeing someone for her cholesterol tomorrow. * Chani Vuong MA - 12/04/2024 11:22 AM EST ----- Message from GHISLAINE Estrada sent at 12/04/2024 11:18 AM EST ----- Please let pt know that her lfts are about the same, a little BETTER. Did she end up stopping the statin? If not, she can continue it bc the labs are better and the med is not the cause. If she DID stop it, they may be better bc she is off of it and I would recommend discussing new med with PCP forcholesterol. TY documented in this encounter Plan of Treatment Upcoming Encounters Date Type Department Care Team (Late st Contact Info) Description 01/23/2025 10:30 AM EDT Office Visit Gastroenterology - [address] [facility] [address] [place] [phone] Kem Germain PA [address] [facility] [address] [place] [address] [place] [phone] documented as of this encounter Visit Diagnoses Not on filedocumented in this encounter Care Teams International Nurse Relationship Specialty Start Date End Date Magdaleno Law MD [address] [place] [id number] PCP - General Internal Medicine 10/12/24 documented as of this encounter
--- OUTSIDE RECORDS SUMMARY | 2024-12-05 13:53 | XMS_ITS | Clinical Summary ---
Author Organization LL [address] [place] [address] Address [address] [place] [address] Phone Care Team Providers Care Agricultural Equipment Sales Manager Name Role Phone Clau Law MD Primary Care Provider [phone] Allergies Active Allergy Reactions Criticality Noted Date Comments Iodinated Contrast Media 10/24/2024 Medications irbesartan-hydro CHLOROthiazide (AVALIDE) 300-12.5 mg per tablet Take 1 tablet by mouth 1 (one) time each day. 07/25/20 24 Active Trulicity 0.75 mg/0.5 mL pen injector injection INJECT 0.75MG SUBCUTANEOUSLY ONCE A WEEK 09/19/20 24 Active Symbicort 160-4.5 mcg/actuation inhaler Inhale 2 puffs by mouth 2 (two) times a day. 10/05/20 24 Active aspirin 81 mg EC tablet Take 1 tablet (81 mg total) by mouth 1 (one) time each day. for 90 days 07/27/20 24 Active atorvastatin (LIPITOR) 40 mg tablet Take 1 tablet (40 mg total) by mouth at bedtime. 06/13/20 24 Active Ventolin HFA 90 mcg/actuation inhaler 10/22/19 25 Active cholecalciferol (VITAMIN D-3) 1,250 mcg (50,000 unit) capsule TAKE 1 CAPSULE BY MOUTH ONCE A WEEK DIRECTED 08/14/20 24 Active cyanocobalamin (VITAMIN B-12) 1,000 mcg tablet Take 1 tablet (1,000 mcg total) by mouth 1 (one) time each day. 09/09/20 24 Active isosorbide mononitrate (IMDUR) 30 mg 24 hr tablet take 1 tablet by mouth every day in the morning for 90 days 07/27/20 24 Active metFORMIN (GLUCOPHAGE) 500 mg tablet 10/12/19 25 Active omeprazole OTC (PriLOSEC OTC) 20 mg EC tablet Take 1 tablet (20 mg total) by mouth 1 (one) time each day. Do not crush, chew, or split. Active polyethylene glycol (MIRALAX) 17 gram packetIndication s:Chronic constipation Take 17 g by mouth 1 (one) time each day. 1530 g 3 10/24/19 25 026 Active omeprazole OTC (PriLOSEC OTC) 20 mg EC tabletIndication s:Upper abdominal pain Take 1 tablet (20 mg total) by mouth 1 (one) time each day. Do not crush, chew, or split. 30 tablet 11 10/24/19 25 026 Active Active Problems Problem Noted Date Diagnosed Date Adenomatous polyp of colon 10/24/2024 Diabetes 10/24/2024 Hyperlipidemia 10/24/2024 Eczema 10/24/2024 Gastroesophageal reflux disease without esophagi tis 10/24/2024 COPD (chronic obstructive pulmonary disease) OAB (overactive bladder) 10/24/2024 Encounters Date Type Department Care Team Description 12/04/2024 Telephone Gastroenterology - [address] [phone] Chani Vuong MA Results 10/24/2024 10:20 AM EST Office Visit Gastroenterology - [address] [place] [phone] Kem Germain PA Elevated LFTs (Primary Dx); Upper abdominal pain; Chronic constipation 10/24/2024 Telephone Gastroenterology - [address] [place] [phone] Kem Germain PA 09/13/2024 Telephone Gastroenterology - [address] [place] [phone] Kem Germain PA 09/08/2024 Lab Requisition [facility] - Main Lab [address] [facility] [place] [phone] Manuel Moore MD Abnormal results [...] on file Sexual Orientation Not on file Obstetrics History Last Filed [...] Office Visit Gastroenterology - [address] [facility] [address] [place] [phone] Kem Germain PA [address] [facility] [address] [place] [address] Health Maintenance Due Date Last Done Comments Diabetes: Annual GFR (Glomerular Filtration Rate) 1962 Diabetes: Annual Foot Exam 1972 Diabetes: Annual Retina Eye Exam 1972 DTaP,Tdap,and Td Vaccines (1 - Tdap) 1981 Pneumococcal Vaccine: 50+ Years (1 of 2 - PCV) 1981 Pneumococcal Vaccine: Pediatrics (0 to 5 Years) and At-Risk Patients (6 to 64 Years) (1 of 2 - PCV) 1981 Cervical Cancer Screening: Pap Smear 1983 Zoster Vaccines (1 of 2) 2012 Colorectal Cancer Screening: Colonoscopy 09/06/2022 Depression Screening 09/06/2022 HIV Screening 09/06/2022 Hepatitis C Screening 09/06/2022 Social Influencers of Health Screening 09/06/2022 RSV Immunization Patients 60+ Years Old (1 - Risk 60-74 years 1-dose series) 2022 COVID-19 Vaccine (3 - season) 2024 05/04/2021, 04/03/2021 Influenza Vaccine (#1) 2024 06/01/2017 Diabetes: Annual Urine Albumin-Creatinine Ratio (uACR) 10/24/2024 Diabetes: Blood Sugar Control Test (HGBA1C) 10/24/2024 Breast Cancer Screening 01/25/2026 01/26/20, 01/23/2023, 01/30/2021, Additional history exists Cholesterol Screening (Lipid Panel) 12/04/2029 12/04/2024, 12/03/2024 HIB Vaccines Aged Out No longer eligi [...] patient's age to complete this topic Meningococcal B Vacine Aged Out No lo nger eligible based on patient's age to complete this topic RSV Immunization Patients Under 20 months Aged Out No longer eligible based on patient's age to complete this topic Varicella Vaccines Aged Out No longer eligible based on patient's age to complete this topic Procedures Procedure Name Priority Date/Time Associated Diagnosis Comments HEPATIC FUNCTION PANEL Routine 12/04/2024 9:51 AM EST Hyperlipemia Drug therapy LIPID PANEL WITH REFLEX TO DIRECT LDL Routine 12/04/2024 9:51 AM EST Hyperlipemia Drug therapy LIPID PANEL WITH REFLEX TO DIRECT LDL Routine 12/03/2024 3:05 PM EST Hyperlipemia HEPATIC FUNCTION PANEL Routine 12/03/2024 3:05 PM EST Elevated LFTs HEPATIC FUNCTION PANEL Routine 10/24/2024 11:06 AM EST Elevated LFTs Upper abdominal pain HEPATIC FUNCTION PANEL Routine 09/08/2024 1:20 PM EST Abnormal results of liver function studies JB SCREENING DIGITAL Routine 01/26/2024 10:43 AM EDT Encounter for screening mammogram for malignant neoplasm of breast from Last 3 Months or Most Recently Relevant to Health Maintenance Results * Lipid panel with reflex to direct LDL (12/04/2024 9:51 AM EST) Only the most recent of2 resultswithin the time period is included. Cholesterol 141 0 - 200 mg/dL LAB CHEMISTRY METHOD 12/04/2024 11:33 AM [facility] Triglycerides 126 0 - 150 mg/dL LAB CHEMISTRY METHOD 12/04/2024 11:33 AM [facility] HDL 45 >=40 mg/dL LAB CHEMISTRY METHOD 12/04/2024 11:33 AM [facility] LDL Calculated 71 0 - 100 mg/dL LAB CHEMISTRY METHOD 12/04/2024 11:33 AM [facility] VLDL Cholesterol Leoncio 25.2 mg/dL LAB CHEMISTRY METHOD 12/04/2024 11:33 AM [facility] Non HDL Chol. (LDL+VLDL) 96 <145 mg/dL LAB CHEMISTRY METHOD 12/04/2024 11:33 AM [facility] Chol/HDL Ratio 3.1 0.0 - 4.4 LAB CHEMISTRY METHOD 12/04/2024 11:33 AM [facility] Blood Venous blood specimen / Unknown Venipuncture / Unknown 12/04/2024 9:51 AM EST 12/04/2024 10:26 AM EST us Enrique Mendoza MD LAB BLOOD ORDERABLES Final Re sult Performing Organization Address City/[facility]/ZIP Co de Phone Number [facility] [address] [place] [address], [place] [phone] * (ABNORMAL) Hepatic function panel (12/04/2024 9:51 AM EST) Only the most recent of4 resultswithin the time period is included. Total Protein 8.3(H) 6.0 - 8.0 g/dL LAB CHEMISTRY METHOD 12/04/2024 11:32 AM EST [facility] Albumin 3.7 3.2 - 5.0 g/dL LAB CHEMISTRY METHOD 12/04/2024 11:32 AM [facility] Total Bilirubin 0.6 0.0 - 1.4 mg/dL LAB CHEMISTRY METHOD 12/04/2024 11:32 AM [facility] Bilirubin, Direct 0.2 0.0 - 0.3 mg/dL LAB CHEMISTRY METHOD 12/04/2024 11:32 AM [facility] Bilirubin, Indirect 0.4 0.0 - 1.1 mg/dL LAB CHEMISTRY METHOD 12/04/2024 11:32 AM [facility] ALT (SGPT) 58 10 - 60 unit/L LAB CHEMISTRY METHOD 12/04/2024 11:32 AM [facility] AST (SGOT) 71(H) 10 - 42 unit/L LAB CHEMISTRY METHOD 12/04/2024 11:32 AM [facility] Alkaline Phosphatase 108 42 - 121 unit/L LAB CHEMISTRY METHOD 12/04/2024 11:32 AM [facility] Blood Venous blood specimen / Unknown Venipuncture / Unknown 12/04/2024 9:51 AM EST 12/04/2024 10:26 AM EST us Enrique Mendoza MD LAB BLOOD ORDERABLES Final Re sult [facility] LAB [address] [place] [address], * JB SCREENING DIGITAL (01/26/2024 10:43 AM EDT) Anatomical Region Laterality Modality Mammography 01/26/2024 10:0 4 AM EDT Narrative 01/26/2024 10:43 AM EDT [facility] Diagnostic Imaging Department [address] [place] [address] Patient: ??JUAN CARLOS MELGOZA ?/Age/Sex: 1960 - 63 - F Unit#: ??[id number] ? Location/Status: ??SPDIMAM/REG CLI ? Mnemonic/Ordering Site: ??DIGSC/SPMAM Ordering Physician: ??CLAU LAW MD Jb Screening Digital - 01/26/24 - 1022 Report Status:Signed EXAM: Jb Screening Digital EXAM DATE AND TIME: 01/26/2024 10:23 AM HISTORY: ??Annual screening COMPARISON: ??Multiple exams dating back to 2018 TECHNIQUE: Bilateral digital breast tomosynthesis was performed in the CC and MLO projections. Computer aided detection with DalloulNW 3D 3.1 was employed. TISSUE DENSITY: b. [...] Procedure Note Perez Koroma MD - 05/28/2024 [facility] Diagnostic Imaging Department [address] [place] [id number] Patient: JUAN CARLOS MELGOZA /Age/Sex: 1960 - 63 - F Unit#: [id number] Location/Status: [facility] CLI Mnemonic/Ordering Site: [facility] Ordering Physician: CLAU LAW MD [facility] Screening Digital - 01/26/24 - 1022 Report Status:Signed EXAM: [facility] Screening Digital EXAM DATE AND TIME: 01/26/2024 10:23 AM HISTORY: Annual screening COMPARISON: Multiple exams dating back to 2018 TECHNIQUE: Bilateral digital [facility] Computer aided detection with iCAD ProFound AI 3D 3.1was employed. TISSUE DENSITY: b. There [...] in 1 year. 3341F, 7025F Dictating Physician: PEREZ KOROMA MD Electronically Signed by: PEREZ KOROMA MD Dic Date/Time: 01/26/24 1042 Sign date/Time: 01/26/24 1043 Clau Law MD IMG BI PROCEDURES Final Result from Last 3 Months or Most Recently Relevant to Health Maintenance Insurance [facility] [address] Care Teams Agricultural Equipment Sales Manager Relationship Specialty Start Date End Date Clau Law MD [address] [place] [id number] PCP - General Internal Medicine 10/12/24
--- OUTSIDE RECORDS SUMMARY | 2024-12-05 13:54 | XMS_ITS | Encounter Summary ---
Author Organization [facility] Address [address] [place] [phone] Care Team Providers Care Quality Improvement Specialist Name Role Phone Magdaleno Law MD Primary Care Provider Encounter Details Date Type Department Care Team (Late Contact Info) Description 09/08/2024 Lab Requisition [facility] - Main Lab [address] [place] [phone] Manuel Moore MD [address] [address] Abnormal results of liver function studies Social History Tobacco Use Types Packs/Day Years Used Date Smoking Tobacco: Never Assessed Comments Unknown Sex and Gender Information Value Date Recorded Sex Assigned at Not on file Legal Sex Female 9:22 AM EST Gender Identity Not on file Sexual Orientation Not on file documented as of this encounter Plan of Treatment Upcoming Encounters Date Type Department Care Team (Late Contact Info) Description 01/23/2025 10:30 AM EDT Office Visit Gastroenterology - [address] [phone] Kem Germain PA [address] [address] documented as of this encounter Procedures Procedure Name Priority Date/Time Associated Diagnosis Comments HEPATIC FUNCTION PANEL Routine 09/08/2024 1:20 PM EST Abnormal results of liver function studies documented in this encounter Results * (ABNORMAL) Hepatic function panel (09/08/2024 1:20 PM EST) Total Protein 8.2(H) 6.0 - 8.0 g/dL LAB CHEMISTRY METHOD 09/08/2024 2:03 PM [facility] Albumin 3.9 3.2 - 5.0 g/dL LAB CHEMISTRY METHOD 09/08/2024 2:03 PM [facility] Total Bilirubin 0.5 0.0 - 1.4 mg/dL LAB CHEMISTRY METHOD 09/08/2024 2:03 PM [facility] Bilirubin, Direct 0.2 0.0 - 0.3 mg/dL LAB CHEMISTRY METHOD 09/08/2024 2:03 PM [facility] Bilirubin, Indirect 0.3 0.0 - 1.1 mg/dL LAB CHEMISTRY METHOD 09/08/2024 2:03 PM [facility] ALT (SGPT) 75(H) 10 - 60 unit/L LAB CHEMISTRY METHOD 09/08/2024 2:03 PM [facility] AST (SGOT) 55(H) 10 - 42 unit/L LAB CHEMISTRY METHOD 09/08/2024 2:03 PM [facility] Alkaline Phosphatase 115 42 - 121 unit/L LAB CHEMISTRY METHOD 09/08/2024 2:03 PM [facility] Blood Venous blood specimen / Unknown 09/08/2024 1:20 PM EST 09/08/2024 1:20 PM EST us Manuel Moore MD LAB BLOOD ORDERABLES Final Result [facility] [address] [place] [address], [place] [phone] documented in this encounter Visit Diagnoses Diagnosis Abnormal results of liver function studies Nonspecific abnormal results of liver function study documented in this encounter Care Teams Quality Improvement Specialist Relationship Specialty Start Date End Date Magdaleno Law MD [address] [place] [phone] PCP - General Internal Medicine 10/12/24 documented as of this encounter
== END 2024-12-05 12:27 | disposition home or self-care (01) ==
PROVIDERS: PCP Internal Medicine; Visit Provider Dietitian, Registered
DX: E11.65 Type 2 diabetes mellitus with hyperglycemia (principal)

== ENCOUNTER 2024-12-05 11:04 | Outpatient (AMB) | payer OTHER, SELFPAY ==
[2024-12-05 11:06] VITALS: BP 112/70; PULSE 98; O2SAT 98; BMI 33.1
--- NOTE | 2024-12-05 11:06 | A.OFFVIS_ITS ---
Vital Signs 12/05/24 11:06 Height 5 ft 2 in Weight 180 lb 12.465 oz BMI 33.1 BP 112/70 Blood Pressure Location Rt brachial Position Sitting Pulse 98 Pulse Source Pulse Oximeter Pulse Oximetry (%) 98 Oxygen Delivery Method Room Air Intake Visit Reasons: diabetes follow up. check lipid Intake Note: Patient presents today for a follow-up on Type 2 Diabetes Mellitus: Last Diabetic Eye exam: Approx 4 months ago Last Podiatry Visit: Does not have a Drainage Engineer at the moment. Most Recent HgA1C: 8.6% 11/14/2024 Random Glucose: 251 mg/dL, Today Waterproofing Mixer Required: Yes Waterproofing Mixer Language: Armenian Waterproofing Mixer Services: Waterproofing Mixer Offered & Declined Waterproofing Mixer Name: Information Interpreted: non-clinical & clinical Accompanied by: Daughter Allergies nicotine Allergy (Unknown, Verified 11/14/24 11:06) Unknown lisinopril Adverse Reaction (Unknown, Verified 11/14/24 11:06) Unknown IV dye Allergy (Unknown, Uncoded 11/14/24 11:06) Anaphylaxis HPI Comments Details: This is a 64-year-old female presenting for diabetes follow up Medical history: HLD, HTN, hepatic steatosis, IBS, ANN, psoriasis PCP: [employer] 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 Daughter accompanies and also helpful Current medications: On metformin 500mg twice daily-taking 500mg daily, Trulicity 0.75mg weekly and glipizide 10mg (this was started ~2 weeks ago). She has been having some headaches x 2-3 weeks. Imdur, glipizide and crestor are new. She also has a history of allergic rhinitis. Her fasting blood glucose is generally 150-200 there has not been improvement on the glipizide. She has gained some weight. Reports medication compliance. Has history of GI upset, gas, constipation. Not sure whether it worsened with medications or not. She has been on both medications for quite some time Previous medications: Said previously on lantus. Gave her bloating and weight gain. Thinks she tried other medication remotely in the past as well but she is unsure Last A1C 8.6%. Seeing diabetic nutrition today Increased LFTs with atorvastatin. Started crestor one month ago. Outside LFT with mild elevation in ALT at 78. Sounds like this is chronic. AST is normalized. Cholesterol has improved Does endorse some foot neuropathy. Was with Dr Marques who passed. Referred to new provider last visit. Father had hx of CVA ROS CONSTITUTIONAL: Denies weight loss, fever and chills. HEENT: Denies changes in vision and hearing. RESPIRATORY: Denies SOB and cough. CV: Denies palpitations and CP GI: Denies abdominal pain, nausea, vomiting and diarrhea. : Denies dysuria and urinary frequency. MSK: Denies new myalgia and joint pain. SKIN: Denies rash and pruritus. NEUROLOGICAL: Denies headache PSYCHIATRIC: Denies recent changes in mood. PHYSICAL EXAM: GENERAL: Alert and oriented x 3. NAD EYES: EOMI. Anicteric. HENT: Moist mucous membranes. No scleral icterus. No cervical lymphadenopathy. LUNGS: Clear to auscultation bilaterally. CARDIOVASCULAR: Regular rate and rhythm. No murmur. No JVD. ABDOMEN: Soft, non-tender +bs EXTREMITIES: No edema. Non-tender. SKIN: No rashes or lesions. Warm. NEUROLOGIC: No focal neurological deficits. CN II-XII grossly intact PSYCHIATRIC: Cooperative. Appropriate mood and affect [facility] Medical History Hyperlipidemia Surgical History History of kidney surgery Hx of cholecystectomy History of ear surgery Family History Mother No known health problems Father High blood pressure Social History Alcohol intake: never Patient Tobacco Use Status: Former Tobacco user Assessment & Plan Assessment & Plan (1) Type 2 diabetes mellitus: Code(s): E11.9 - Type 2 diabetes mellitus without complications Category: Medical Qualifiers: Diabetes mellitus mcfp insulin use: without mcfp use Diabetes mellitus complication status: with hyperglycemia Qualified Code(s): E11.65 - Type 2 diabetes mellitus with hyperglycemia Plan: Uncontrolled. Trying to get patient on good regimen that is both tolerable and gets A1C to goal. She will stop glipizide. Transition trulcity to mounjaro. Continue metformin. Medications: New Mounjaro (tirzepatide) 5 mg (0.5 mL) subcut QWEEK 2 mL 3RF NS E11.65 - Type 2 diabetes mellitus with hyperglycemia cholecalciferol (vitamin D3) 25 mcg PO DAILY 90 caps 3RF Refilled FreeStyle Lite Meter (blood-glucose meter) As directed 1 ea 0RF NS E11.65 - Type 2 diabetes mellitus with hyperglycemia Discontinued dulaglutide (Trulicity) Discontinued Reason: Doctor's Order 0.75 mg (0.5 mL) subcut QWEEK 2 mL 0RF On Hold glipizide ER Hold Comment: Doctor's Order 10 mg PO DAILY 90 tabs 3RF Coding Level of Care Code Est Pt Level 4 (43247) Diagnoses Type 2 diabetes mellitus with hyperglycemia, without long-term current use of insulin E11.65 Diabetes mellitus mcfp insulin use: without mcfp use Diabetes mellitus complication status: with hyperglycemia
[2024-12-05 11:18] LABS: Glucose, Whole Blood 251 mg/dL (60-115)
== END 2024-12-05 12:18 | disposition home or self-care (01) ==
PROVIDERS: PCP Internal Medicine; Visit Provider Internal Medicine
DX: E11.65 Type 2 diabetes mellitus with hyperglycemia (principal)

== ENCOUNTER → 2024-12-05 11:04 | Outpatient (BNVA) | payer OTHER, SELFPAY | PROVIDERS: PCP Internal Medicine; Visit Provider Dietitian, Registered | DX: E11.65 Type 2 diabetes mellitus with hyperglycemia (principal); E78.5 Hyperlipidemia, unspecified; Z71.3 Dietary counseling and surveillance | CPT/HCPCS: 82947; 97802; 99212 ==

== ENCOUNTER 2025-01-16 11:03 | Outpatient (AMB) | payer OTHER, SELFPAY ==
[2025-01-16 11:09] VITALS: BP 126/80; PULSE 86; O2SAT 96; BMI 32.3
--- NOTE | 2025-01-16 11:09 | A.OFFVIS_ITS ---
Vital Signs 01/16/25 11:09 Height 5 ft 2 in Weight 176 lb 5.917 oz BMI 32.3 BP 126/80 Blood Pressure Location Rt brachial Position Sitting Pulse 86 Pulse Source Pulse Oximeter Pulse Oximetry (%) 96 Oxygen Delivery Method Room Air Intake Visit Reasons: DM f/u Intake Note: Patient presents today for a follow-up on Type 2 Diabetes Mellitus: Last Diabetic Eye exam: 07/2024? Last Podiatry Visit: Does not have a Video Editor at the moment. Most Recent HgA1C: 8.6% 11/14/2024 Random Glucose: 191 mg/dL, Today Separator Operator [employer] Required: Yes Separator [employer] Language: Sinhala Separator Operator [employer] Services: Separator Operator [employer] Offered & Declined Separator [employer] Name: Information Interpreted: non-clinical & clinical Accompanied by: Daughter Allergies nicotine Allergy (Unknown, Verified 11/14/24 11:06) Unknown lisinopril Adverse Reaction (Unknown, Verified 11/14/24 11:06) Unknown IV dye Allergy (Unknown, Uncoded 11/14/24 11:06) Anaphylaxis Medication List - Last Reconciled 01/16/25 by Gracia Mederos MD albuterol sulfate 90 mcg/actuation (Ventolin HFA) inhalation ammonium lactate 12% appl topical aspirin mg PO DAILY betamethasone dipropionate 0.05% topical blood sugar diagnostic (FreeStyle Lite Strips) As directed blood sugar diagnostic (Blood Glucose Test strips) test blood glucose once daily blood-glucose meter check blood glucose once daily budesonide-formoterol 160-4.5 mcg/actuation (Symbicort) 2 puffs inhalation BID cholecalciferol (vitamin D3) 25 mcg PO DAILY cyanocobalamin (vitamin B-12) mcg PO DAILY doxycycline hyclate 100 mg PO BID fluticasone propionate 50 mcg/actuation intranasal FreeStyle Lancets (lancets) once daily NS FreeStyle Lite Meter (blood-glucose meter) As directed NS FreeStyle Lite Strips (blood sugar diagnostic) once daily NS glipizide ER 10 mg PO DAILY irbesartan-hydrochlorothiazide 300-12.5 mg tabs PO DAILY isosorbide mononitrate ER mg PO DAILY ketotifen fumarate 0.025%(0.035%) drps ophthalmic (eye) lancets once daily metformin mg PO ONCE metoclopramide HCl mg PO DAILY metoprolol succinate ER mg PO DAILY omeprazole mg PO DAILY oxybutynin chloride ER mg PO DAILY Ozempic (semaglutide) 0.5 mg (0.736 mL) subcut QWEEK NS rosuvastatin (Crestor) 20 mg PO DAILY tacrolimus 0.1% topical HPI Comments Details: This is a 64-year-old female presenting for diabetes follow up Medical history: HLD, HTN, hepatic steatosis, IBS, ANN, psoriasis 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 Daughter accompanies and also helpful Current medications: On metformin 500mg twice daily-taking 500mg daily, last visit attempted to transition Trulicity 0.75mg weekly to mounjaro d/t headaches, insurance wouldn't cover so settled on ozempic. She has only taken 2 of the shots so far. Has lost 4 pounds. Says glucose has improved did not bring meter or log. Stopped glipizide 10mg which she was on only for a very short amount of time-was having headaches x 2-3 weeks. Imdur, glipizide and crestor are new. She also has a history of allergic rhinitis. Her sinuses have been congested with ear fullness and sore throat. no fevers Previous medications: Said previously on lantus. Gave her bloating and weight gain. Thinks she tried other medication remotely in the past as well but she is unsure Last A1C 8.6% on 11/14/24 Seeing diabetic nutrition today Increased LFTs with atorvastatin. Started crestor one month ago. Outside LFT with mild elevation in ALT at 78. Sounds like this is chronic. AST is normalized. Cholesterol has improved Does endorse some foot neuropathy. Referred to podiatry Father had hx of CVA ROS see HPI PHYSICAL EXAM: GENERAL: Alert and oriented x 3. NAD EYES: EOMI. Anicteric. HENT: Moist mucous membranes. No scleral icterus. +maxillary pressure. Erythema of the oropharynx without exudate LUNGS: Clear to auscultation bilaterally. CARDIOVASCULAR: Regular rate and rhythm. No murmur. No JVD. ABDOMEN: Soft, non-tender +bs EXTREMITIES: No edema. Non-tender. SKIN: No rashes or lesions. Warm. NEUROLOGIC: No focal neurological deficits. CN II-XII grossly intact PSYCHIATRIC: Cooperative. Appropriate mood and affect [facility], [facility] Medical History Hyperlipidemia Surgical History History of kidney surgery Hx of cholecystectomy History of ear surgery Family History Mother No known health problems Father High blood pressure Social History Alcohol intake: never Patient Tobacco Use Status: Former Tobacco user Physical Exam Vital Signs: Last Vital Signs Pulse 86 01/16/25 11:09 BP 126/80 01/16/25 11:09 Pulse Ox 96 01/16/25 11:09 Oxygen Delivery Method Room Air 01/16/25 11:09 BMI result Body Mass Index 32.3 Assessment & Plan Assessment & Plan (1) Type 2 diabetes mellitus: Code(s): E11.9 - Type 2 diabetes mellitus without complications Category: Medical Qualifiers: Diabetes mellitus intermediate teacher insulin use: without intermediate teacher use Diabetes mellitus complication status: with hyperglycemia Qualified Code(s): E11.65 - Type 2 diabetes mellitus with hyperglycemia Plan: Adjusting medications. Congratulated on 4 pound weight loss. Will have return in one month-due for A1C and will have more injections of the 0.5mg ozempic under belt. Discussed need to check daily am fasting glucose and bring meter/logs Rule of 15s for hypoglycemia (2) Sinusitis: Code(s): J32.9 - Chronic sinusitis, unspecified Qualifiers: Sinusitis location: maxillary Chronicity: subacute Qualified Code(s): J01.00 - Acute maxillary sinusitis, unspecified Plan: doxycycline x 7 days. Follow up with primary if no improvement Medications: New doxycycline hyclate 100 mg PO BID 14 tabs 0RF Coding Level of Care Code Est Pt Level 4 (17655) Diagnoses Type 2 diabetes mellitus with hyperglycemia, without long-term current use of insulin E11.65 Diabetes mellitus snf insulin use: without intermediate teacher use Diabetes mellitus complication status: with hyperglycemia Subacute maxillary sinusitis J01.00 Sinusitis location: maxillary Chronicity: subacute
[2025-01-16 11:19] LABS: Glucose, Whole Blood 191 mg/dL (60-115)
--- OUTSIDE RECORDS SUMMARY | 2025-01-16 13:02 | XMS_ITS | Encounter Summary ---
Author Organization [facility] Address [address] [place] [phone] Care Team Providers Care Building Services Supervisor Name Role Phone Magdaleno Law MD Primary Care Provider [phone] Encounter Details Date Type Department Care Team (Late Contact Info) Description 09/08/2024 Lab Requisition [facility] - Main Lab [address] [place] [phone] Manuel Moore MD [address] [address] Abnormal results of liver function studies Social [...] Office Visit Gastroenterology - [address] [phone] Kem Germain PA [address] [address] documented as of this encounter Procedures Procedure Name Priority Date/Time Associated Diagnosis Comments HEPATIC FUNCTION PANEL Routine 09/08/2024 1:20 PM EST Abnormal results of liver function studies documented in this encounter Results * (ABNORMAL) Hepatic function panel (09/08/2024 1:20 PM EST) Total Protein 8.2(H) 6.0 - 8.0 g/dL LAB CHEMISTRY METHOD 09/08/2024 2:03 PM [facility] Albumin 3.9 3.2 - 5.0 g/dL LAB CHEMISTRY METHOD 09/08/2024 2:03 PM [facility] Total Bilirubin 0.5 0.0 - 1.4 mg/dL LAB CHEMISTRY METHOD 09/08/2024 2:03 PM [facility] Bilirubin, Direct 0.2 0.0 - 0.3 mg/dL LAB CHEMISTRY METHOD 09/08/2024 2:03 PM [facility] Bilirubin, Indirect 0.3 0.0 - 1.1 mg/dL LAB CHEMISTRY METHOD 09/08/2024 2:03 PM [facility] ALT (SGPT) 75(H) 10 - 60 unit/L LAB CHEMISTRY METHOD 09/08/2024 2:03 PM [facility] AST (SGOT) 55(H) 10 - 42 unit/L LAB CHEMISTRY METHOD 09/08/2024 2:03 PM [facility] Alkaline Phosphatase 115 42 - 121 unit/L LAB CHEMISTRY METHOD 09/08/2024 2:03 PM [facility] Blood Venous blood specimen / Unknown 09/08/2024 1:20 PM EST 09/08/2024 1:20 PM EST us Manuel Moore MD LAB BLOOD ORDERABLES Final Result [facility] [address] [place] [address], [place] [phone] documented in this encounter Visit Diagnoses Diagnosis Abnormal results of liver function studies Nonspecific abnormal results of liver function study documented in this encounter Care Teams Building Services Supervisor Relationship Specialty Start Date End Date Magdaleno Law MD [address] [place] [phone] PCP - General Internal Medicine 10/12/24 documented as of this encounter
--- OUTSIDE RECORDS SUMMARY | 2025-01-16 13:02 | XMS_ITS | Clinical Summary ---
Author Organization LL [address] [place] [address] Address [address] [place] [address] Phone Care Team Providers Care Circle Saw Operator Name Role Phone Clau Law MD Primary Care Provider [phone] Allergies Active Allergy Reactions Criticality Noted Date [...] Team Description 12/04/2024 Telephone Gastroenterology - [address] [place] [phone] Chani Vuong MA Results 10/24/2024 10:20 AM EST Office Visit Gastroenterology - [address] [place] [address] [phone] Kem Germain PA Elevated LFTs (Primary Dx); Upper abdominal pain; Chronic constipation 10/24/2024 Telephone Gastroenterology - [address] [place] [address] [phone] Kem Germain PA from Last 3 Months Surgical History Surgery [...] AM EDT Office Visit Gastroenterology - [address] [place] [phone] Kem Germain PA [address] [facility] [place] [address] [place] [address] Health Maintenance Due Date Last Done Comments [...] Influencers of Health Screening 09/06/2022 RSV Immunization Adult Patients (1 - Risk 60-74 years 1-dose series) 2022 COVID-19 Vaccine ( season) 2024 05/04/2021, 04/03/2021 Diabetes: Annual Urine Albumin-Creatinine Ratio (uACR) 10/24/2024 Diabetes: Blood Sugar Control Test (HGBA1C) 10/24/2024 Influenza Vaccine (Season Ended) 2025 06/01/2017 Breast Cancer Screening 01/25/2026 01/26/20, 01/23/2023, 01/30/2021, [...] age to complete this topic Meningococcal B Vaccine Aged Out No l onger eligible based on patient's age to complete [...] AM EST Elevated LFTs Upper abdominal pain HITESH SCREENING DIGITAL Routine 01/26/2024 10:43 AM [...] mg/dL LAB CHEMISTRY METHOD 12/04/2024 11:33 AM [facility] Triglycerides 126 0 - 150 mg/dL LAB CHEMISTRY METHOD 12/04/2024 11:33 AM [facility] HDL 45 >=40 mg/dL LAB CHEMISTRY METHOD 12/04/2024 11:33 AM [facility] LDL Calculated 71 0 - 100 mg/dL LAB CHEMISTRY METHOD 12/04/2024 11:33 AM [facility] VLDL Cholesterol Leoncio 25.2 mg/dL LAB CHEMISTRY METHOD 12/04/2024 11:33 AM [facility] Non HDL Chol. (LDL+VLDL) 96 <145 mg/dL LAB CHEMISTRY METHOD 12/04/2024 11:33 AM [facility] Chol/HDL Ratio 3.1 0.0 - 4.4 LAB CHEMISTRY METHOD 12/04/2024 11:33 AM [facility] Blood Venous blood specimen / Unknown Venipuncture / Unknown 12/04/2024 9:51 AM EST 12/04/2024 10:26 AM EST us Enrique Mendoza MD LAB BLOOD ORDERABLES Final Re sult [facility] [address] [place] [address], * (ABNORMAL) Hepatic function panel (12/04/2024 9:51 AM EST) Only the most recent of3 resultswithin the time period is included. Total Protein 8.3(H) 6.0 - 8.0 g/dL LAB CHEMISTRY METHOD 12/04/2024 11:32 AM [facility] Albumin 3.7 3.2 - 5.0 g/dL LAB CHEMISTRY METHOD 12/04/2024 11:32 AM [facility] Total Bilirubin 0.6 0.0 - 1.4 mg/dL LAB CHEMISTRY METHOD 12/04/2024 11:32 AM [facility] Bilirubin, Direct 0.2 0.0 - 0.3 mg/dL LAB CHEMISTRY METHOD 12/04/2024 11:32 AM [facility] Bilirubin, Indirect 0.4 0.0 - 1.1 mg/dL LAB CHEMISTRY METHOD 12/04/2024 11:32 AM [facility] ALT (SGPT) 58 10 - 60 unit/L LAB CHEMISTRY METHOD 12/04/2024 11:32 AM [facility] AST (SGOT) 71(H) 10 - 42 unit/L LAB CHEMISTRY METHOD 12/04/2024 11:32 AM [facility] Alkaline Phosphatase 108 42 - 121 unit/L LAB CHEMISTRY METHOD 12/04/2024 11:32 AM [facility] Blood Venous blood specimen / Unknown Venipuncture / Unknown 12/04/2024 9:51 AM EST 12/04/2024 10:26 AM EST us Enrique Mendoza MD LAB BLOOD ORDERABLES Final Re sult [facility] [address] [place] [address], * HITESH SCREENING DIGITAL (01/26/2024 10:43 AM EDT) Anatomical Region Laterality Modality Mammography 01/26/2024 10:0 4 AM EDT Narrative 01/26/2024 10:43 AM EDT [facility] Diagnostic Imaging Department [address] [place] [address] Patient: ??JUAN CARLOS MELGOZA ?/Age/Sex: 1960 - 63 - F Unit#: ??[id number] ? Location/Status: ??SPDIMAM/REG CLI ? Mnemonic/Ordering Site: ??DIGSC/SPMAM Ordering Physician: ??CLAU LAW MD [facility] Screening Digital - 01/26/24 - 1022 Report Status:Signed EXAM: [facility] Screening Digital EXAM DATE AND TIME: 01/26/2024 10:23 AM HISTORY: ??Annual screening COMPARISON: ??Multiple exams dating back to 2018 TECHNIQUE: Bilateral digital breast tomosynthesis was performed in the CC and MLO projections. Computer aided detection with [place] 3D 3.1 was employed. TISSUE DENSITY: b. [...] Procedure Note Perez Koroma MD - 05/28/2024 [facility] Diagnostic Imaging Department [address] [place] [id number] Patient: JUAN CARLOS MELGOZA.O.B./Age/Sex: 1960 - 63 - F Unit#: [id number] Location/Status: SPDIMA/REG CLI Mnemonic/Ordering Site: [facility] Ordering Physician: CLAU LAW MD [facility] Screening Digital - 01/26/24 - 1022 Report Status:Signed EXAM: [facility] Screening Digital EXAM DATE AND TIME: 01/26/2024 10:23 AM HISTORY: Annual screening COMPARISON: Multiple exams dating back to 2018 TECHNIQUE: Bilateral digital breast tomosynthesis was performed in the CCand MLO projections. Computer aided detection with [employer] [place] 3D 3.1was employed. TISSUE DENSITY: b. There [...] Most Recently Relevant to Health Maintenance Insurance [facility] [employer] Care Teams Circle Saw Operator Relationship Specialty Start Date End Date Clau Law MD [address] [place] [id number] PCP - General Internal Medicine 10/12/24
== END 2025-01-16 11:30 | disposition home or self-care (01) ==
LOC: HO.ENCR 11:03
PROVIDERS: PCP Internal Medicine; Visit Provider Internal Medicine
DX: E11.65 Type 2 diabetes mellitus with hyperglycemia (principal); J01.00 Acute maxillary sinusitis, unspecified

== ENCOUNTER → 2025-01-16 11:03 | Outpatient (BNVA) | payer OTHER, SELFPAY | PROVIDERS: PCP Internal Medicine; Visit Provider Internal Medicine | DX: E11.65 Type 2 diabetes mellitus with hyperglycemia (principal); J01.00 Acute maxillary sinusitis, unspecified | CPT/HCPCS: 82947; 99212 ==

== ENCOUNTER 2025-02-13 09:56 | Outpatient (AMB) | payer OTHER, SELFPAY ==
--- NOTE | 2025-02-13 09:58 | A.OFFVIS_ITS ---
Vital Signs 02/13/25 09:59 Height 5 ft 2 in Weight 171 lb 15.369 oz BMI 31.4 BP 126/74 Blood Pressure Location Rt brachial Position Sitting Pulse 80 Pulse Source Pulse Oximeter Intake Visit Reasons: T2DM Intake Note: Patient presents today for a follow-up on Type 2 Diabetes Mellitus: Last Diabetic Eye exam: 07/2024? Last Podiatry Visit: Does not have a Sr Risk Management Consultant at the moment. Most Recent HgA1C: 7.1%, 02/13/2025 Random Glucose: 219 mg/dL, Today Clinical Informatics Educator Required: Yes Clinical Informatics Educator Language: Syriac Clinical Informatics Educator Services: Clinical Informatics Educator Offered & Declined Clinical Informatics Educator Name: Information Interpreted: non-clinical & clinical Accompanied by: Daughter Allergies nicotine Allergy (Unknown, Verified 02/13/25 10:00) Unknown lisinopril Adverse Reaction (Unknown, Verified 02/13/25 10:00) Unknown IV dye Allergy (Unknown, Uncoded 02/13/25 10:00) Anaphylaxis HPI Comments Details: This is a 64-year-old female presenting for diabetes follow up Medical history: HLD, HTN, hepatic steatosis, IBS, ANN, psoriasis PCP: [facility] employed during visit. Daughter accompanies and also helpful Current medications: On metformin 500mg twice daily-taking 500mg daily, ozempic 0.5mg weekly with good improvement in A1C. Trucility caused headaches. Stopped glipizide 10mg which she was on only for a very short amount of time-was having headaches x 2-3 weeks. She c/o body aches, muscle pain, generalized fatigue and some abdominal upset for the past 2 months. She has been on crestor for a few months. Had increased LFTs with atorvastatin. Previous medications: Said previously on lantus. Gave her bloating and weight gain. Thinks she tried other medication remotely in the past as well but she is unsure A1C 7.1% from 8.6% on 11/14/24 Seeing diabetic nutrition today Left ear discomfort-gets white flaky sometimes wet exudate. Has appointment scheduled with allergy, frequent sinus infections, rhinitis. Treated at last appt for sinusitis. Now with c/o yeast infection Does endorse some foot neuropathy. Referred to podiatry Father had hx of CVA ROS see HPI PHYSICAL EXAM: GENERAL: Alert and oriented x 3. NAD EYES: EOMI. Anicteric. HENT: Moist mucous membranes. No scleral icterus. left canal exudate, No erythema or bulging of TMs Erythema of the oropharynx without exudate LUNGS: Clear to auscultation bilaterally. CARDIOVASCULAR: Regular rate and rhythm. No murmur. No JVD. ABDOMEN: Soft, non-tender +bs EXTREMITIES: No edema. Non-tender. SKIN: No rashes or lesions. Warm. NEUROLOGIC: No focal neurological deficits. CN II-XII grossly intact PSYCHIATRIC: Cooperative. Appropriate mood and affect [facility] Medical History Hyperlipidemia Surgical History History of kidney surgery Hx of cholecystectomy History of ear surgery Family History Mother No known health problems Father High blood pressure Social History Alcohol intake: never Patient Tobacco Use Status: Former Tobacco user Physical Exam Vital Signs: Last Vital Signs Pulse 80 02/13/25 09:59 BP 126/74 02/13/25 09:59 BMI result Body Mass Index 31.4 Results AMB Hemoglobin A1c AMB Hemoglobin A1c 7.1 % Last Edit by CRISTY Trent on 02/13/25 10:17 Results Reviewed Results Reviewed: Laboratory Last Values Glucose (Clinic) 219 mg/dL (60-115) H 02/13/25 10:08 Assessment & Plan Assessment & Plan (1) Type 2 diabetes mellitus: Code(s): E11.9 - Type 2 diabetes mellitus without complications Category: Medical Qualifiers: Diabetes mellitus intermediate manager insulin use: without intermediate manager use Diabetes mellitus complication status: with hyperglycemia Qualified Code(s): E11.65 - Type 2 diabetes mellitus with hyperglycemia (2) Otitis externa: Code(s): H60.90 - Unspecified otitis externa, unspecified ear Category: Medical Qualifiers: Otitis externa type: unspecified type Chronicity: unspecified Laterality: left Qualified Code(s): H60.92 - Unspecified otitis externa, left ear (3) Yeast infection: Code(s): B37.9 - Candidiasis, unspecified Category: Medical Plan Diabetes-much improved control Muscle aches, weakness, gi upset. Statin is newer. Will trial off for one month. Advised to continue with ozempic for now. Can use zofran prn Diflucain, metronidizole for yeast infection Cipro drops sent for left ear Orders: Orders AMB Hemoglobin A1c Today E11.65 - Type 2 diabetes mellitus with hyperglycemia Medications: New fluconazole may repeat second dose 72 hrs after first dose if symptoms persist 150 mg PO Q3D 2 tabs 1RF metronidazole 0.75%(37.5mg/5gram) 1 appful vaginal DAILY 5 days 70 grams 0RF ciprofloxacin-hydrocortisone 0.2-1 % (Cipro HC) 3 drps otic (ear) left BID 7 days 10 mL 0RF ondansetron 4 mg PO Q8H PRN 30 tabs 1RF nausea and vomiting Discontinued rosuvastatin Discontinued Reason: Doctor's Order 20 mg PO DAILY 90 tabs 1RF Coding Level of Care Code Est Pt Level 4 (29721) Complex EM visit Add On G2211 Diagnoses Type 2 diabetes mellitus with hyperglycemia, without long-term current use of insulin E11.65 Diabetes mellitus intermediate manager insulin use: without intermediate manager use Diabetes mellitus complication status: with hyperglycemia Otitis externa of left ear, unspecified chronicity, unspecified type H60.92 Otitis externa type: unspecified type Chronicity: unspecified Laterality: left Yeast infection B37.9
[2025-02-13 09:59] VITALS: BP 126/74; PULSE 80; BMI 31.4
[2025-02-13 10:14] LABS: Glucose, Whole Blood 219 mg/dL (60-115)
== END 2025-02-13 10:41 | disposition home or self-care (01) ==
LOC: HO.ENCR 09:56
PROVIDERS: PCP Internal Medicine; Visit Provider Internal Medicine
DX: E11.65 Type 2 diabetes mellitus with hyperglycemia (principal); H60.92 Unspecified otitis externa, left ear; B37.9 Candidiasis, unspecified

== ENCOUNTER → 2025-02-13 09:56 | Outpatient (BNVA) | payer OTHER, SELFPAY | PROVIDERS: PCP Internal Medicine; Visit Provider Internal Medicine | DX: E11.65 Type 2 diabetes mellitus with hyperglycemia (principal); H60.92 Unspecified otitis externa, left ear; B37.9 Candidiasis, unspecified; Z79.84 Long term (current) use of oral hypoglycemic drugs | CPT/HCPCS: 82947; 83036; 99212 ==

== ENCOUNTER 2025-03-13 11:14 | Outpatient (AMB) | payer OTHER, SELFPAY ==
--- NOTE | 2025-03-13 11:02 | A.OFFVIS_ITS ---
Vital Signs 03/13/25 11:15 Height 5 ft 2 in Weight 174 lb 2.643 oz BMI 31.9 BP 124/78 Blood Pressure Location Rt brachial Position Sitting Pulse 79 Pulse Source Pulse Oximeter Pulse Oximetry (%) 98 Oxygen Delivery Method Room Air Intake Visit Reasons: T2DM Intake Note: Patient presents today for a follow-up on Type 2 Diabetes Mellitus: Last Diabetic Eye exam: Approx 4 months ago Last Podiatry Visit: Does not have a Senior Business Objects Developer at the moment. Most Recent HgA1C: 7.1%, 02/13/2025 Random Glucose: 209 mg/dL, Today Yarn Hauler Required: Yes Yarn Hauler Services: Yarn Hauler Offered & Declined Yarn Hauler Name: DAUGHTER Information Interpreted: non-clinical & clinical Accompanied by: Daughter Allergies nicotine Allergy (Unknown, Verified 02/13/25 10:00) Unknown lisinopril Adverse Reaction (Unknown, Verified 02/13/25 10:00) Unknown IV dye Allergy (Unknown, Uncoded 02/13/25 10:00) Anaphylaxis HPI Comments Details: This is a 64-year-old female presenting for diabetes follow up Medical history: HLD, HTN, hepatic steatosis, IBS, ANN, psoriasis PCP: [facility] Daughter is interpreting in today's visit. Mother does understand some Kinyarwanda Current medications: metformin 500mg taking 500mg daily ozempic 0.5mg weekly with good improvement in A1C. Glipizide on hold She tests her glucose once daily morning readings vary from 90-160. She does not test later in the day She is having some symptoms of nausea the 1st 2 days after Ozempic and does not wish to increase this dosing. Previous medication Trucility caused headaches. Stopped glipizide 10mg which she was on only for a very short amount of time-was having headaches x 2-3 weeks. Lantus gave her bloating and weight gain. Thinks she tried other medications but she is unsure Has had recent liver enzyme increase. A1C 7.1% from 8.6% on 11/14/24 A1C 03/13/25 % Has recently seen senior database administrator Does endorse some foot neuropathy. Father had hx of CVA PFSH Medical History Hyperlipidemia Surgical History History of kidney surgery Hx of cholecystectomy History of ear surgery Family History Mother No known health problems Father High blood pressure Social History Alcohol intake: never Patient Tobacco Use Status: Former Tobacco user Physical Exam Vital Signs: Last Vital Signs Pulse 79 03/13/25 11:15 BP 124/78 03/13/25 11:15 Pulse Ox 98 03/13/25 11:15 Oxygen Delivery Method Room Air 03/13/25 11:15 BMI result Body Mass Index 31.9 Const Other: Absence of Cushingoid features. Absence of acromegalic features. Neck exam reveals nl size thyroid about 15 gms. No thyroid nodules palpable. Heart S1 S2, Reg R/R. No M/R G. Skin exam reveals absence of vitiligo or acanthosis nigricans. No edema Results Reviewed Results Reviewed: Laboratory Last Values Glucose (Clinic) 209 mg/dL (60-115) H 03/13/25 11:20 Assessment & Plan Assessment & Plan (1) Type 2 diabetes mellitus: Code(s): E11.9 - Type 2 diabetes mellitus without complications Category: Medical Qualifiers: Diabetes mellitus terminal clerk insulin use: without terminal clerk use Diabetes mellitus complication status: with hyperglycemia Qualified Code(s): E11.65 - Type 2 diabetes mellitus with hyperglycemia Plan: 64-year-old type 2 diabetic with mild neuropathy with recent A1c of 7.1% early February. She does not wish to increase Ozempic as she is having some nausea the 1st 2 days. will continue metformin once daily and Ozempic 5 mg She was asked to add 10 minutes of walking after dinner as has been shown to decrease the sugars overnight. She will follow up with Dr. Tyson Henry in 1 month's time. She was given lab slips to take with her as she would like to do her blood work at [facility] Orders: Orders Creatinine Urine Today E11.65 - Type 2 diabetes mellitus with hyperglycemia Aspartate Amino Transferase Today E11.65 - Type 2 diabetes mellitus with hyperglycemia Alanine Aminotransferase Today E11.65 - Type 2 diabetes mellitus with hyperglycemia Free T4 (Free Thyroxine) Today E11.65 - Type 2 diabetes mellitus with hyperglycemia Microalbumin, Random (w Creat) Today E11.65 - Type 2 diabetes mellitus with hyperglycemia Basic Metabolic Panel Today E11.65 - Type 2 diabetes mellitus with hyperglycemia Basic Metabolic Panel Fasting Today E11.65 - Type 2 diabetes mellitus with hyperglycemia Thyroid Stimulating Hormone Today E11.65 - Type 2 diabetes mellitus with hyperglycemia Coding Level of Care Code Est Pt Level 4 (03936) Complex EM visit Add On G2211 Diagnoses Type 2 diabetes mellitus with hyperglycemia, without long-term current use of insulin E11.65 Diabetes mellitus terminal clerk insulin use: without senior care use Diabetes mellitus complication status: with hyperglycemia Time Spent (min) 30 Comment Time spent reviewing labs/provider notes, face to face, chart doc
[2025-03-13 11:15] VITALS: BP 124/78; PULSE 79; O2SAT 98; BMI 31.9
[2025-03-13 11:24] LABS: Glucose, Whole Blood 209 mg/dL (60-115)
--- OUTSIDE RECORDS SUMMARY | 2025-03-13 12:12 | XMS_ITS | Clinical Summary ---
Author Organization LL [address] [place] [address] Address [address] [place] [address] Phone Care Team Providers Care Welder Fabricator Name Role Phone Magdaleno Law MD Primary Care Provider [phone] Allergies Active Allergy Reactions Criticality Noted Date [...] 30 tablet 11 10/24/19 25 026 Active Additional Information Patient not taking.Reported on 01/23/2025 semaglutide (Ozempic) 0.25 mg or 0.5 mg(2 mg/1.5 mL) injection pen Inject 0.25 mg under the skin every 7 (seven) days. Active rosuvastatin (CRESTOR) 20 mg tablet Take 1 tablet (20 mg total) by mouth 1 (one) time each day. Active doxycycline (ADOXA) 100 mg tablet Take 1 tablet (100 mg total) by mouth 2 (two) times a day. Take with a full glass of water and do not lie down for at least 30 minutes after Active omeprazole OTC (PriLOSEC OTC) 20 mg EC tabletIndication s:Epigastric pain,Nausea Take 1 tablet (20 mg total) by mouth 2 (two) times a day. Do not crush, chew, or split. 180 tablet 3 01/24/20 25 026 Active Active Problems Problem Noted Date Diagnosed Date Adenomatous polyp of colon 10/24/2024 Diabetes ([facility] V24, [facility] V28) 10/24/2024 Hyperlipidemia 10/24/2024 Eczema 10/24/2024 Gastroesophageal reflux disease without esophagi tis 10/24/2024 COPD (chronic obstructive pu lmonary disease) ([facility] V24, [facility] V28) 10/24/2024 OAB (overactive bladder) 10/24/2024 Encounters Date Type Department Care Team Description 02/26/2025 Telephone Gastroenterology - [address] [place] [address] [address] [place] [phone] Chani Vuong MA Results 02/25/2025 9:14 AM EDT - 02/25/2025 11:59 PM EDT Hospital Encounter [facility] CT Scan [address] [place] [phone] Lower abdominal pain Discharge Disposition: Home or Self Care 01/23/2025 10:30 AM EDT Office Visit Gastroenterology - [address] [place] [address] [address] [place] [phone] Kem Germain PA Lower abdominal pain (Primary Dx); Elevated LFTs; Chronic constipation; Epigastric pain; Nausea 01/23/2025 Telephone Gastroenterology - [address] [place] [phone] [place] [address] Scan from Last 3 Months Surgical History Surgery Date Site/Laterality Comments COLONOSCOPY 07/10/2020 - 08/09/2020 SSAx1, left sided tics (5 yr) ESOPHAGOGASTRODUODENOSCOPY 07/10/2020 - 08/09/2020 nl COLONOSCOPY 03/10/2011 - 04/08/2011 nl, fair prep (5 yr) Social History Tobacco Use Types Packs/Day Years Used Date Smoking Tobacco: Former Cigarettes Smokeless Tobacco: Never Tobacco Cessation:Counseling Given: Not Answered Alcohol Use Standard Drinks/Week Comments Not Currently 0 (1 standard drink = 0.6 oz pur e alcohol) Comments Unknown Sex and Gender Information Value Date Recorded Sex Assigned at Female 01/24/2025 1:45 PM EDT Legal Sex Female 9:22 AM EST Gender Identity Not on file Sexual Orientation Not on file Obstetrics History Last Filed Vital Signs Vital Sign Reading Time Taken Comments Blood Pressure - - Pulse - - Temperature - - Respiratory Rate - - Oxygen Saturation - - Inhaled Oxygen Concentration - - Weight 78.9 kg (174 lb) 01/23/2025 10:30 AM EDT Height 157.5 cm (5' 2 ) 01/23/2025 10:30 AM EDT Body Mass Index 31.83 01/23/2025 10:30 AM EDT Plan of Treatment Upcoming Encounters Date Type Department Care Team (Late st Contact Info) Description 04/24/2025 10:30 AM EDT Office Visit Gastroenterology - [address] [place] [phone] Kem Germain PA [address] [place] [address] Health Maintenance Due Date Last Done Comments [...] Ended) 2025 06/01/2017 Breast Cancer Screening 01/25/2026 01/26/20 24, 01/23/2023, 01/30/2021, Additional history exists Cholesterol Screening [...] Procedure Name Priority Date/Time Associated Diagnosis Comments CT ABDOMEN PELVIS WO CONTRAST STAT 02/25/2025 9:39 AM EDT Lower abdominal pain LIPID PANEL WITH REFLEX TO DIRECT LDL Routine 12/04/2024 9:51 AM EST Hyperlipemia Drug therapy JB SCREENING DIGITAL Routine 01/26/2024 10:43 AM EDT Encounter for screening mammogram for malignant neoplasm of breast from Last 3 Months or Most Recently Relevant to Health Maintenance Results * CT Abdomen Pelvis wo Contrast (02/25/2025 9:39 AM EDT) Anatomical Region Laterality Modality Body Computed Tomogra phy 02/25/2025 10:1 0 AM EDT Impressions 02/25/2025 10:20 AM EDT No obstruction, free air, free fluid or focal inflammatory changes. Mild colonic diverticulosis without acute diverticulitis. Mildly nodular hepatic contour suggestive of cirrhotic morphology. -------- FINAL REPORT -------- Dictated By: Jacquie Mendieta Dictated Date: 02/25/2025 10:10 ET Assigned Physician: Jacquie Mendieta Reviewed and Electronically Signed By: Jacquie Mendieta Signed Date: 02/25/2025 10:20 ET Workstation ID: [id number] Transcribed By: Self Edit Transcribed Date: 02/25/2025 10:10 ET Narrative 02/25/2025 10:20 AM EDT INDICATION: Lower abdominal pain, concern for diverticulitis TECHNIQUE: CT scan of the abdomen and pelvis obtained without intravenous contrast. Oral contrast administered. Scanner: GE LightSpeed 64 slice VCT Dose reduction technique: ASIR (Adaptive statistical iterative reconstruction) and/or AEC (automated exposure control) Dose: total exam DLP 1188 mGY per cm COMPARISON: Compared to multiple prior studies most recent from April 15, 2018 FINDINGS: Lung bases are clear. Bony structures are unremarkable for the patient's age. Mildly nodular hepatic contour suggestive of cirrhotic morphology. Status post cholecystectomy. Borderline splenomegaly. Pancreas, adrenal glands and kidneys are within normal limits. Small vascular calcifications noted within the right renal hilum. Stomach and small bowel are within normal limits. Oral contrast has not reached the ileal loops. Terminal ileum and appendix normal in the right lower quadrant. Colon normal in course and caliber. No colonic wall thickening or pericolonic inflammatory changes. Mild scattered colonic diverticulosis no acute diverticulitis. Urinary bladder is decompressed. Uterus within normal limits. No adnexal masses. Small amount of gas attenuation within the vagina. Mild atherosclerotic changes along the aortoiliac vessels. No retroperitoneal lymphadenopathy. Procedure Note Jacquie Mendieta MD - 02/25/2025 INDICATION: Lower abdominal pain, concern for diverticulitis TECHNIQUE: CT scan of the abdomen and pelvis obtained without intravenouscontrast. Oral contrast administered. Scanner: Isabella Oliverpeed 64 slice VCT Dose reduction technique: ASIR (Adaptive statistical iterativereconstruction) and/or AEC (automated exposure control) Dose: total exam DLP 1188 mGY per cm COMPARISON: Compared to multiple prior studies most recent from April FINDINGS: Lung bases are clear. Bony structures are unremarkable for the patient's age. Mildly nodular hepatic contour suggestive of cirrhotic morphology. Statuspost cholecystectomy. Borderline splenomegaly. Pancreas, adrenal glandsand kidneys are within normal limits. Small vascular calcifications notedwithin the right renal hilum. Stomach and small bowel are within normal limits. Oral contrast has notreached the ileal loops. Terminal ileum and appendix normal in the rightlower quadrant. Colon normal in course and caliber. No colonic wallthickening or pericolonic inflammatory changes. Mild scattered colonicdiverticulosis no acute diverticulitis. Urinary bladder is decompressed. Uterus within normal limits. No adnexal masses. Small amount of gasattenuation within the vagina. Mild atherosclerotic changes along the aortoiliac vessels. Noretroperitoneal lymphadenopathy. IMPRESSION: No obstruction, free air, free fluid or focal inflammatory changes. Mildcolonic diverticulosis without acute diverticulitis. Mildly nodular hepatic contour suggestive of cirrhotic morphology. -------- FINAL REPORT -------- Dictated By: Jacquie Mendieta Dictated Date: 02/25/2025 10:10 ET Assigned Physician: Jacquie Mendieta Reviewed and Electronically Signed By: Jacquie Mendieta Signed Date: 02/25/2025 10:20 ET Workstation ID: [id number] Transcribed By: Self Edit Transcribed Date: 02/25/2025 10:10 ET Kem SCANLON IMG CT PROCEDURES Final Resu lt * Lipid panel with reflex to direct LDL (12/04/2024 9:51 AM EST) Cholesterol 141 0 - 200 mg/dL LAB CHEMISTRY METHOD 12/04/2024 11:33 AM [facility] Triglycerides 126 0 - 150 mg/dL LAB CHEMISTRY METHOD 12/04/2024 11:33 AM [facility] HDL 45 >=40 mg/dL LAB CHEMISTRY METHOD 12/04/2024 11:33 AM [facility] LDL Calculated 71 0 - 100 mg/dL LAB CHEMISTRY METHOD 12/04/2024 11:33 AM [facility] VLDL Cholesterol Leoncio 25.2 mg/dL LAB CHEMISTRY METHOD 12/04/2024 11:33 AM [facility] Non HDL Chol. (LDL+VLDL) 96 <145 mg/dL LAB CHEMISTRY METHOD 12/04/2024 11:33 AM [facility] Chol/HDL Ratio 3.1 0.0 - 4.4 LAB CHEMISTRY METHOD 12/04/2024 11:33 AM [facility] Blood Venous blood specimen / Unknown Venipuncture / Unknown 12/04/2024 9:51 AM EST 12/04/2024 10:26 AM EST us Enrique Mendoza MD LAB BLOOD ORDERABLES Final Re sult [facility] H[facility] LAB [address] [place] [address], * JB SCREENING DIGITAL (01/26/2024 10:43 AM EDT) Anatomical Region Laterality Modality Mammography 01/26/2024 10:0 4 AM EDT Narrative 01/26/2024 10:43 AM EDT [facility] Diagnostic Imaging Department [address] [place] [address] Patient: ??JUAN CARLOS MELGOZA ?/Age/Sex: 1960 - 63 - F Unit#: ??[id number] ? Location/Status: ??SPDIMAM/REG CLI ? Mnemonic/Ordering Site: ??DIGSC/SPMAM Ordering Physician: ??MAGDALENO LAW MD Jb Screening Digital - 01/26/24 - 2 Report Status:Signed EXAM: Jb Screening Digital EXAM DATE AND TIME: 01/26/2024 10:23 AM HISTORY: ??Annual screening COMPARISON: ??Multiple exams dating back to 2018 TECHNIQUE: Bilateral digital breast tomosynthesis was performed in the CC and MLO projections. Computer aided detection with Shoutly 3D 3.1 was employed. TISSUE DENSITY: b. [...] screening mammogram BILATERAL in 1 year. 3341F, 7061F Dictating Physician: ??PEREZ KOROMA MD Electronically Signed by: ??PEREZ KOROMA MD Dic Date/Time: ??01/26/24 1042 Sign date/Time: ??01/26/24 1043 Procedure Note Perez Koroma MD - 05/28/2024 [facility] Diagnostic Imaging Department [address] [place] [address] Patient: JUAN CARLOS MELGOZAO.B./Age/Sex: 1960 - 63 - F Unit#: [id number] [facility] Ordering Physician: MAGDALENO LAW MD [facility] Screening Digital - 01/26/24 - 1022 Report Status:Signed EXAM: [facility] Screening Digital EXAM DATE AND TIME: 01/26/2024 10:23 AM HISTORY: Annual screening COMPARISON: Multiple exams dating back to 2018 TECHNIQUE: Bilateral digital breast tomosynthesis was performed in the CCand MLO projections. Computer aided detection with iCAD Nearpod AI 3D 3.1was employed. TISSUE DENSITY: b. [...] Date/Time: 01/26/24 1042 Sign date/Time: 01/26/24 1043 Magdaleno Law MD IMG BI PROCEDURES Final Result from Last 3 Months or Most Recently Relevant to Health Maintenance Insurance [facility] [employer] Care Teams Welder Fabricator Relationship Specialty Start Date End Date Magdaleno Law MD [address] [place] [id number] PCP - General Internal Medicine 10/12/24
== END 2025-03-13 11:57 | disposition home or self-care (01) ==
LOC: HO.ENCR 11:14
PROVIDERS: PCP Internal Medicine; Visit Provider Nurse Practitioner Adult Health
DX: E11.65 Type 2 diabetes mellitus with hyperglycemia (principal)
CPT/HCPCS: 99214; G2211

== ENCOUNTER → 2025-03-13 11:14 | Outpatient (BNVA) | payer OTHER, SELFPAY | PROVIDERS: PCP Internal Medicine; Visit Provider Nurse Practitioner Adult Health | DX: E11.65 Type 2 diabetes mellitus with hyperglycemia (principal) | CPT/HCPCS: 82947; 99212 ==

== ENCOUNTER 2025-05-10 10:28 | Outpatient (AMB) | payer OTHER, SELFPAY ==
[2025-05-10 10:30] VITALS: BP 130/72; PULSE 75; O2SAT 98; BMI 31.8
--- NOTE | 2025-05-10 10:30 | A.OFFVIS_ITS ---
Vital Signs 05/10/25 10:30 Height 5 ft 2 in Weight 173 lb 11.588 oz BMI 31.8 BP 130/72 Blood Pressure Location Lt brachial Position Sitting Pulse 75 Pulse Source Pulse Oximeter Pulse Oximetry (%) 98 Oxygen Delivery Method Room Air Intake Visit Reasons: Diabetes Type 2 Intake Note: Patient present today for Type 2 Diabetes Mellitus Last Diabetic eye exam: 07/2024 Patient has upcoming appt for July 2025 Last Podiatry Visit: Doesn't have one Random Glucose: 182 mg/dl HgA1C: 6.9% Freight Service Inspector Required: No Accompanied by: daughter in law Allergies nicotine Allergy (Unknown, Verified 05/10/25 10:37) Unknown lisinopril Adverse Reaction (Unknown, Verified 05/10/25 10:37) Unknown IV dye Allergy (Unknown, Uncoded 05/10/25 10:37) Anaphylaxis Medication List - Last Reconciled 05/10/25 by Edwina Montilla PA-C albuterol sulfate 90 mcg/actuation (Ventolin HFA) inhalation ammonium lactate 12% appl topical aspirin mg PO DAILY betamethasone dipropionate 0.05% topical blood sugar diagnostic (FreeStyle Lite Strips) As directed blood sugar diagnostic (Blood Glucose Test strips) test blood glucose once daily blood-glucose meter check blood glucose once daily budesonide-formoterol 160-4.5 mcg/actuation (Symbicort) 2 puffs inhalation BID cholecalciferol (vitamin D3) 25 mcg PO DAILY ciprofloxacin-hydrocortisone 0.2-1 % (Cipro HC) 3 drps otic (ear) left BID 7 days cyanocobalamin (vitamin B-12) mcg PO DAILY doxycycline hyclate 100 mg PO BID fluconazole 150 mg PO Q3D 2 doses fluticasone propionate 50 mcg/actuation intranasal FreeStyle Lancets (lancets) once daily NS FreeStyle Lite Meter (blood-glucose meter) As directed NS FreeStyle Lite Strips (blood sugar diagnostic) once daily NS irbesartan-hydrochlorothiazide 300-12.5 mg tabs PO DAILY isosorbide mononitrate ER mg PO DAILY ketotifen fumarate 0.025%(0.035%) drps ophthalmic (eye) lancets once daily metformin mg PO ONCE metoclopramide HCl mg PO DAILY metoprolol succinate ER mg PO DAILY metronidazole 0.75%(37.5mg/5gram) 1 appful vaginal DAILY 5 days omeprazole mg PO DAILY ondansetron 4 mg PO Q8H PRN oxybutynin chloride ER mg PO DAILY tacrolimus 0.1% topical HPI HPI Diabetes Type 2: Details: Patient is a 64-year-old female with a significant past medical history of type 2 diabetes hypertension and hyperlipidemia presenting today for a consult regarding her diabetes. She normally follows with Dr. Mederos. Her daughter is here to help with any translation issues. Endo: Last A1c was 7.1 and today it is 6.9. She is currently managed with metformin 500 mg daily, Ozempic 0.5 mg weekly She states that she can not tolerate the Ozempic. She feels tired with it she is nauseous for the 1st few days with the injection. Her stomach just always feels queasy and upset. Trulicity caused nausea, ozempic causes nausea and fatigue, glipizide in the past causes swelling Bs at home range from 100-200. CV: Blood pressure today in the office is 130/72. She is currently on irbesartan/hydrochlorothiazide 300/12.5 mg daily, isosorbide, metoprolol. PCP recently stopped statin due to elevated LFTs. They just completed labs this week to recheck and she is unsure what the plan is but at this point is not on a statin. [facility] Medical History Hyperlipidemia Surgical History History of kidney surgery Hx of cholecystectomy History of ear surgery Family History Mother No known health problems Father High blood pressure Social History Alcohol intake: never Patient Tobacco Use Status: Former Tobacco user Physical Exam Vital Signs: Last Vital Signs Pulse 75 05/10/25 10:30 BP 130/72 05/10/25 10:30 Pulse Ox 98 05/10/25 10:30 Oxygen Delivery Method Room Air 05/10/25 10:30 BMI result Body Mass Index 31.8 Const Orientation/consciousness: patient oriented x3 Neck Neck: Yes no lymphadenopathy Thyroid: Thyroid normal Carotids: no bruits Resp Auscultation: clear to auscultation bilaterally Cardio Rate: regular rate Rhythm: regular rhythm Heart sounds: S1 normal heart sound present and S2 normal heart sound present Peripheral pulses: dorsalis pedis present Neuro General: patient oriented x3, gait normal and no focal motor deficits Extrem Other: Skin intact. General: Yes normal to inspection Results AMB Hemoglobin A1c AMB Hemoglobin A1c 6.9 % Last Edit by CRISTY Busch on 05/10/25 11:02 Results Reviewed Results Reviewed: Laboratory Last Values Glucose (Clinic) 182 mg/dL (60-115) H 05/10/25 10:40 Assessment & Plan Assessment & Plan (1) Type 2 diabetes mellitus: Code(s): E11.9 - Type 2 diabetes mellitus without complications Category: Medical Qualifiers: Diabetes mellitus middle or intermediate school principal insulin use: without longterm use Diabetes mellitus complication status: with hyperglycemia Qualified Code(s): E11.65 - Type 2 diabetes mellitus with hyperglycemia Plan: We will try switching to Mounjaro. Discussed risks and benefits and adverse effects of this medication. She has an upcoming appointment at the end of the month with Dr. Mederos and she will keep this. If she is unable to tolerate the medication or has any questions or concerns she will call us sooner. We did discuss also holding the metformin to see if any of her GI symptoms improves. Reviewed signs and symptoms of hyper and hypoglycemia that would require emergent medical treatment. She will monitor her diet and blood sugars closely. advised to check labs prior to appt (2) HTN (hypertension): Code(s): I10 - Essential (primary) hypertension Category: Medical Plan: wnl continue current plan Orders: Orders AMB Hemoglobin A1c Today E11.65 - Type 2 diabetes mellitus with hyperglycemia, Z13.9 - Encounter for screening, unspecified Medications: New tirzepatide (Mounjaro) for 4 weeks 2.5 mg (0.5 mL) subcut QWEEK 2 mL 3RF Refilled ciprofloxacin-hydrocortisone 0.2-1 % (Cipro HC) 3 drps otic (ear) left BID 10 mL 0RF 7 days Coding Level of Care Code Est Pt Level 4 (52376) Complex EM visit Add On G2211 Diagnoses Type 2 diabetes mellitus with hyperglycemia, without long-term current use of insulin E11.65 Diabetes mellitus longterm insulin use: without middle or intermediate school principal use Diabetes mellitus complication status: with hyperglycemia HTN (hypertension) I10
--- OUTSIDE RECORDS SUMMARY | 2025-05-10 10:39 | XMS_ITS | Encounter Summary ---
Author Organization [facility] Address [address] [place] [address] Care Team Providers Care Accounts Executive Name Role Phone Magdaleno Law MD Primary Care Provider [phone] Encounter Details Date Type Department Care Team (Late st Contact Info) Description 05/09/2025 Telephone Gastroenterology - [address] [place] [phone] Talisha Lobato MA Social History Tobacco Use Types Packs/Day Years Used Date Smoking Tobacco: Former Cigarettes Smokeless Tobacco: Never Alcohol Use Standard Drinks/Week Comments Not Currently 0 (1 standard drink = 0.6 oz pur e alcohol) Comments Unknown Sex and Gender Information Value Date Recorded Sex Assigned at Female 01/24/2025 1:45 PM EDT Legal Sex Female 9:22 AM EST Gender Identity Not on file Sexual Orientation Not on file documented as of this encounter Progress Notes * Talisha Lobato MA - 05/09/2025 3:41 PM EDT DAUGHTER IN LAW AWARE * Sima Pak - 05/09/2025 3:36 PM EDT Patient returning call * Talisha Lobato MA - 05/09/2025 2:27 PM EDT Left message for patients daughter in law to call office * Talisha Lobato MA - 05/09/2025 2:27 PM EDT ----- Message from GHISLAINE Estrada sent at 05/06/2025 6:36 PM EDT ----- Please let patient's [id number] Emily ([phone]) know that the last test did come back finally. It shows that she does have significant fatty liver as we discussed. The blood work does not indicate a lot of scar tissue/fibrosis in the liver however. This is different than what the CAT scan showed (nodular liver). The CAT scan does indicate she has significant scar tissue/cirrhosis. We will continue to monitor her mother in law for the cirrhosis as I discussed in the appointment. She will have the ultrasound to recheck the liver as planned in the fall as well. Thank you. documented in this encounter Plan of Treatment Upcoming Encounters Date Type Department Care Team (Late st Contact Info) Description 08/28/2025 10:00 AM EST Office Visit Gastroenterology - [address] [phone] Kem Germain PA [address] [address] documented as of this encounter Visit Diagnoses Not on filedocumented in this encounter Care Teams Accounts Executive Relationship Specialty Start Date End Date Magdaleno Law MD [address] [place] [id number] PCP - General Internal Medicine 10/12/24 documented as of this encounter
[2025-05-10 10:44] LABS: Glucose, Whole Blood 182 mg/dL (60-115)
== END 2025-05-10 11:10 | disposition home or self-care (01) ==
LOC: HO.ENCR 10:28
PROVIDERS: PCP Internal Medicine; Visit Provider Physician Assistant
DX: E11.65 Type 2 diabetes mellitus with hyperglycemia (principal); I10 Essential (primary) hypertension; Z13.9 Encounter for screening, unspecified

== ENCOUNTER → 2025-05-10 10:28 | Outpatient (BNVA) | payer OTHER, SELFPAY | PROVIDERS: PCP Internal Medicine; Visit Provider Physician Assistant | DX: E11.65 Type 2 diabetes mellitus with hyperglycemia (principal); I10 Essential (primary) hypertension; Z79.84 Long term (current) use of oral hypoglycemic drugs | CPT/HCPCS: 82947; 83036; 99212 ==

== ENCOUNTER 2025-06-26 11:16 | Outpatient (AMB) | payer OTHER, SELFPAY ==
--- NOTE | 2025-06-26 11:19 | A.OFFVIS_ITS ---
Vital Signs 06/26/25 11:21 Height 5 ft 2 in Weight 174 lb 2.643 oz BMI 31.9 BP 140/72 H Blood Pressure Location Rt brachial Position Sitting Pulse 76 Pulse Source Pulse Oximeter Oxygen Delivery Method Room Air Intake Visit Reasons: Diabetes Type 2 Intake Note: Patient presents today for a follow-up on Type 2 Diabetes Mellitus: Last Diabetic Eye exam: Has an appt coming up in Jul Last Podiatry Visit: Does not have a Cutter Grinder at the moment. Most Recent HgA1C: 6.9%, 05/10/2025 Random Glucose: 210 mg/dL, Today Puller Through Required: Yes Puller Through Language: Hungarian Puller Through Services: Puller Through Offered & Declined Puller Through Name: DAUGHTER-LAW Information Interpreted: non-clinical & clinical Accompanied by: Daughter Allergies nicotine Allergy (Unknown, Verified 06/26/25 11:27) Unknown lisinopril Adverse Reaction (Unknown, Verified 06/26/25 11:27) Unknown IV dye Allergy (Unknown, Uncoded 06/26/25 11:27) Anaphylaxis Medication List - Last Reconciled 06/26/25 by Gracia Mederos MD albuterol sulfate 90 mcg/actuation (Ventolin HFA) inhalation ammonium lactate 12% appl topical aspirin 81 mg PO DAILY betamethasone dipropionate 0.05% topical blood sugar diagnostic (FreeStyle Lite Strips) As directed blood sugar diagnostic (Blood Glucose Test strips) test blood glucose once daily blood-glucose meter check blood glucose once daily budesonide-formoterol 160-4.5 mcg/actuation (Symbicort) 2 puffs inhalation BID cholecalciferol (vitamin D3) 25 mcg PO DAILY ciprofloxacin-hydrocortisone 0.2-1 % (Cipro HC) 3 drps otic (ear) left BID 7 days cyanocobalamin (vitamin B-12) mcg PO DAILY doxycycline hyclate 100 mg PO BID fluconazole 150 mg PO Q3D 2 doses fluticasone propionate 50 mcg/actuation intranasal FreeStyle Lancets (lancets) once daily NS FreeStyle Lite Meter (blood-glucose meter) As directed NS FreeStyle Lite Strips (blood sugar diagnostic) once daily NS irbesartan-hydrochlorothiazide 300-12.5 mg tabs PO DAILY isosorbide mononitrate ER mg PO DAILY ketotifen fumarate 0.025%(0.035%) drps ophthalmic (eye) lancets once daily metoclopramide HCl mg PO DAILY metoprolol succinate ER mg PO DAILY metronidazole 0.75%(37.5mg/5gram) 1 appful vaginal DAILY 5 days omeprazole mg PO DAILY ondansetron 4 mg PO Q8H PRN oxybutynin chloride ER 5 mg PO DAILY tacrolimus 0.1% topical tirzepatide (Mounjaro) 2.5 mg (0.5 mL) subcut QWEEK HPI Comments Details: This is a 64-year-old female presenting for diabetes follow up Medical history: HLD, HTN, hepatic steatosis, IBS, ANN, psoriasis PCP: [facility] Daughter is interpreting in today's visit. Mother does understand some Portuguese Current medications: Holding metformin 500mg daily Mounjaro 2.5mg weekly-this was started six weeks ago she is tolerating fairly well. Ozempic caused nausea Trucility caused headaches. Stopped glipizide 10mg which she was on only for a very short amount of time-was having headaches x 2-3 weeks. Lantus gave her bloating and weight gain. A1C 6.9% on 05/10/25 from 7.1% from 8.6% Traditional glucometer-average 166 which is higher than usual Has had recent liver enzyme increase. Her statin was stopped and they tell me the numbers normalized This was her second statin. Sees GI at [facility]. Will have her repeat cmp and lipid prior to her next visit Saw in service educator Does endorse some foot neuropathy. Eye exam 07/2026 Father had hx of CVA ROS CONSTITUTIONAL: Denies weight loss, fever and chills. HEENT: Denies changes in vision and hearing. RESPIRATORY: Denies SOB and cough. CV: Denies palpitations and CP GI: Denies abdominal pain, nausea, vomiting and diarrhea. : Denies dysuria and urinary frequency. MSK: Denies new myalgia and joint pain. SKIN: Denies rash and pruritus. NEUROLOGICAL: Denies headache PSYCHIATRIC: Denies recent changes in mood. PHYSICAL EXAM: GENERAL: Alert and oriented x 3. NAD EYES: EOMI. Anicteric. HENT: Moist mucous membranes. No scleral icterus. No cervical lymphadenopathy. LUNGS: Clear to auscultation bilaterally. CARDIOVASCULAR: Regular rate and rhythm. No murmur. No JVD. ABDOMEN: Soft, non-tender +bs EXTREMITIES: No edema. Non-tender. SKIN: No rashes or lesions. Warm. NEUROLOGIC: No focal neurological deficits. CN II-XII grossly intact PSYCHIATRIC: Cooperative. Appropriate mood and affect [facility] Medical History Hyperlipidemia Surgical History History of kidney surgery Hx of cholecystectomy History of ear surgery Family History Mother No known health problems Father High blood pressure Social History Alcohol intake: never Patient Tobacco Use Status: Former Tobacco user Physical Exam Vital Signs: Oxygen Delivery Method Room Air 06/26/25 11:21 Assessment & Plan Assessment & Plan (1) Type 2 diabetes mellitus: Code(s): E11.9 - Type 2 diabetes mellitus without complications Category: Medical Qualifiers: Diabetes mellitus shelter insulin use: without rodent exterminator use Diabetes mellitus complication status: with hyperglycemia Qualified Code(s): E11.65 - Type 2 diabetes mellitus with hyperglycemia Plan DM-higher blood glucose than prior. Restart metformin. Continue mounjaro Statin intolerance. recheck cmp lipids prior to next visit She may transfer to [place] for primary care Labs ordered Treat hypoglycemia by rules of 15s Orders: Orders Hemoglobin A1c 5 Weeks E11.65 - Type 2 diabetes mellitus with hyperglycemia, E78.5 - Hyperlipidemia, unspecified, I10 - Essential (primary) hypertension Lipid Panel 5 Weeks E11.65 - Type 2 diabetes mellitus with hyperglycemia, E78.5 - Hyperlipidemia, unspecified, I10 - Essential (primary) hypertension TSH reflex Free T4 5 Weeks E11.65 - Type 2 diabetes mellitus with hyperglycemia, E78.5 - Hyperlipidemia, unspecified, I10 - Essential (primary) hypertension Microalbumin, Random (w Creat) 5 Weeks E11.65 - Type 2 diabetes mellitus with hyperglycemia, E78.5 - Hyperlipidemia, unspecified, I10 - Essential (primary) hypertension Comprehensive Met. Panel 5 Weeks E11.65 - Type 2 diabetes mellitus with hyperglycemia, E78.5 - Hyperlipidemia, unspecified, I10 - Essential (primary) hypertension Medications: New metformin 500 mg PO DAILY Changed From tirzepatide (Mounjaro) for 4 weeks 2.5 mg (0.5 mL) subcut QWEEK 2 mL 3RF .65 - Type 2 diabetes mellitus with hyperglycemia To Mounjaro (tirzepatide) for 4 weeks 2.5 mg (0.5 mL) subcut QWEEK 6 mL 3RF NS .65 - Type 2 diabetes mellitus with hyperglycemia Coding Level of Care Code Est Pt Level 4 (32670) Complex EM visit Add On G2211 Diagnoses Type 2 diabetes mellitus with hyperglycemia, without long-term current use of insulin Diabetes mellitus rodent exterminator insulin use: without rodent exterminator use Diabetes mellitus complication status: with hyperglycemia
[2025-06-26 11:21] VITALS: BP 140/72; PULSE 76; BMI 31.9
[2025-06-26 11:33] LABS: Glucose, Whole Blood 210 mg/dL (60-115)
--- OUTSIDE RECORDS SUMMARY | 2025-06-26 14:30 | XMS_ITS | Encounter Summary ---
Author Organization [facility] [place] [address] Care Team Providers Care Blister Packing Machine Tender Name Role Phone Magdaleno Law MD Primary Care Provider [phone] Encounter Details Date Type Department Care Team (Late st Contact Info) Description 09/08/2024 Lab Requisition [facility] - Main Lab [address] [facility] [place] [phone] Manuel Moore MD [address] [address] Abnormal results of liver function studies Social History Tobacco Use Types Packs/Day Years Used Date Smoking Tobacco: Never Assessed Comments Unknown Sex and Gender Information Value Date Recorded Sex Assigned at Female 01/24/2025 1:45 PM EDT Legal Sex Female 9:22 AM EST Gender Identity Female 05/28/2025 1:16 PM EDT Sexual Orientation Straight 05/28/2025 1: 16 PM EDT documented as of this encounter Plan of Treatment Upcoming Encounters Date Type Department Care Team (Late Contact Info) Description 07/24/2025 9:30 AM EDT Appointment [facility] Ultrasound [address] [place] [phone] 08/05/2025 9:30 AM EDT Appointment [facility] Endoscopy [address] [place] [phone] Manuel Moore MD [address] [address] 08/28/2025 10:00 AM EST Office Visit Gastroenterology - [address] [phone] Kem Germain PA [address] [place] [phone] documented as of this encounter Procedures Procedure Name Priority Date/Time Associated Diagnosis Comments HEPATIC FUNCTION PANEL Routine 09/08/2024 1:20 PM EST Abnormal results of liver function studies documented in this encounter Results * (ABNORMAL) Hepatic function panel (09/08/2024 1:20 PM EST) Total Protein 8.2(H) 6.0 - 8.0 g/dL LAB CHEMISTRY METHOD 09/08/2024 2:03 PM [facility] Albumin 3.9 3.2 - 5.0 g/dL LAB CHEMISTRY METHOD 09/08/2024 2:03 PM [facility] Total Bilirubin 0.5 0.0 - 1.4 mg/dL LAB CHEMISTRY METHOD 09/08/2024 2:03 PM [facility] Bilirubin, Direct 0.2 0.0 - 0.3 mg/dL LAB CHEMISTRY METHOD 09/08/2024 2:03 PM [facility] Bilirubin, Indirect 0.3 0.0 - 1.1 mg/dL LAB CHEMISTRY METHOD 09/08/2024 2:03 PM [facility] ALT (SGPT) 75(H) 10 - 60 unit/L LAB CHEMISTRY METHOD 09/08/2024 2:03 PM [facility] AST (SGOT) 55(H) 10 - 42 unit/L LAB CHEMISTRY METHOD 09/08/2024 2:03 PM [facility] Alkaline Phosphatase 115 42 - 121 unit/L LAB CHEMISTRY METHOD 09/08/2024 2:03 PM EST [facility] Blood Venous blood specimen / Unknown 09/08/2024 1:20 PM EST 09/08/2024 1:20 PM EST us Manuel Moore MD LAB BLOOD ORDERABLES Final Result [facility] [address] [place] [address], documented in this encounter Visit Diagnoses Diagnosis Abnormal results of liver function studies Nonspecific abnormal results of liver function study documented in this encounter Care Teams Blister Packing Machine Tender Relationship Specialty Start Date End Date Magdaleno Law MD [address] [place] [id number] PCP - General Internal Medicine 10/12/24 documented as of this encounter
--- OUTSIDE RECORDS SUMMARY | 2025-06-26 14:30 | XMS_ITS | Clinical Summary ---
Author Organization LL 299 [facility] Address [address] [place] [address] Phone Care Team Providers Care Rotary Drum Tanner Name Role Phone Clau Law MD Primary Care Provider [phone] Allergies Active Allergy Reactions Criticality Noted Date Comments Iodinated Contrast Media 10/24/2024 Medications irbesartan-hydroCH LOROthiazide (AVALIDE) 300-12.5 mg per tablet [...] 1530 g 3 10/24/19 25 026 Active semaglutide (Ozempic) 0.25 mg or 0.5 mg(2 [...] for at least 30 minutes after Active blood sugar diagnostic (FreeStyle Lite Strips) test strip every day 02/09/20 25 Active FreeStyle Lite Meter monitoring kit See administration instructions. 11/28/19 25 Active fluticasone propionate (FLONASE) 50 mcg/actuation nasal spray Administer 1 spray into each nostril 2 (two) times a day. 02/18/20 25 Active furosemide (LASIX) 20 mg tablet Take 1 tablet (20 mg total) by mouth 1 (one) time each day. 02/08/20 25 Active glipiZIDE (GLUCOTROL XL) 10 mg 24 hr tablet Take 1 tablet (10 mg total) by mouth 1 (one) time each day. 02/11/20 25 Active metoclopramide (REGLAN) 10 mg tablet TAKE 1 TABLET BY MOUTH ONCE A DAY NEEDED 15 MINUTES BEFORE DINNER 12/26/19 25 Active ondansetron ODT (ZOFRAN-ODT) 4 mg disintegrating tablet take 1 tablet orally every 8 hours as needed for nausea and vomiting 02/14/20 25 Active rOPINIRole (REQUIP) 0.25 mg tablet Take 1 tablet (0.25 mg total) by mouth 2 (two) times a day. 02/06/20 25 Active omeprazole (PriLOSEC) [address] capsuleIndications :Gastroesophageal reflux disease without esophagitis,Epigas tric pain Take 1 capsule (20 mg total) by mouth 2 (two) times a day. 180 each 1 04/24/20 25 026 Active Active Problems Problem Noted Date Diagnosed Date Adenomatous polyp of colon 10/24/2024 Assessment & Plan (04/24/2025 12:55 PM EDT): Last colonoscopy 07/2020 5-year surveillance due Colon/EGD Hx polyps (5 yr/07/2020) Cirrhosis/rule out varices Aide Moore pt Call daughter- in- law Emily [phone] Colonoscopy and EGD reviewed with patient. Risks discussed including bleeding perforation and missed lesions. There is always a chance surgery or transfusion could be required. Prep discussed with patient. Risks of anesthesia reviewed. Patient advised will need a ride home, not to have liquids for at least 3 hours prior to the procedure. Diabetes ([facility] V24, [facility] V28) 10/24/2024 Hyperlipidemia 10/24/2024 Eczema 10/24/2024 Gastroesophageal reflux disease without esophagi tis 10/24/2024 Assessment & Plan (04/24/2025 12:55 PM EDT): Overall stable Morning nausea/epigastric symptoms possibly related to gastroparesis/Ozempic Continue omeprazole 20 mg twice a day EGD is being scheduled along with colonoscopy Orders: omeprazole (PriLOSEC) [address] capsule; Take 1 capsule (20 mg total) by mouth 2 (two) times a day. COPD (chronic obstructive pu lmonary disease) ([facility] V24, [facility] V28) 10/24/2024 OAB (overactive bladder) 10/24/2024 Encounters Date Type Department Care Team Description 05/09/2025 Telephone Gastroenterology - [address] [facility] [address] [place] [address] [facility] [place] 04/24/2025 10:30 AM EDT Office Visit Gastroenterology - [address] [facility] [address] [place] [address] Kem Germain PA Elevated LFTs (Primary Dx); Other cirrhosis of liver (CMS/HCC V24, CMS/HCC V28); Gastroesophageal reflux disease without esophagitis; Epigastric pain; Chronic constipation; Adenomatous polyp of colon, unspecified part of colon 04/24/2025 Telephone Gastroenterology - [address] [facility] [address] [place] [phone] Manuel Moore MD from Last 3 Months Immunizations Name Administration Dates Next Due Influenza Quadrivalent, 0.5m l, preservative free (Fluarix; FluLaval; Fluzone) ages 6mo and older (Afluria) 3yo and older 06/01/2017 Surgical History Surgery Date Site/Laterality Comments COLONOSCOPY [...] Orientation Straight 05/28/2025 1: 16 PM EDT Obstetrics History Last Filed Vital Signs Vital Sign Reading Time Taken Comments Blood Pressure - - Pulse - - Temperature - - Respiratory Rate - - Oxygen Saturation - - Inhaled Oxygen Concentration - - Weight 78 kg (172 lb) 04/24/2025 10:21 AM EDT Height 157.5 cm (5' 2 ) 04/24/2025 10:21 AM EDT Body Mass Index 31.46 04/24/2025 10:21 AM EDT Plan of Treatment Upcoming Encounters Date Type Department Care Team (Late st Contact Info) Description 07/24/2025 9:30 AM EDT Appointment [facility] Ultrasound [address] [place] [address] 08/05/2025 9:30 AM EDT Appointment [facility] Endoscopy [address] [place] [phone] Manuel Moore MD 299 [facility] [address] [place] [address] 08/28/2025 10:00 AM EST Office Visit Gastroenterology - [address] [facility] [address] [phone] Kem Germain PA [address] [place] [phone] Health Maintenance Due Date Last Done Comments Diabetes: Annual Foot Exam 1972 Diabetes: Annual Retina Eye Exam 1972 DTaP,Tdap,and Td Vaccines (1 - Tdap) 1981 Pneumococcal Vaccine: 50+ Years (1 of 2 - PCV) 1981 Cervical Cancer Screening: Pap Smear 1983 Zoster Vaccines (1 of 2) 2012 Colorectal Cancer Screening: Colonoscopy 09/06/2022 HIV Screening 09/06/2022 Hepatitis C Screening 09/06/2022 Social Influencers of Health Screening 09/06/2022 RSV Immunization Adult Patients (1 - Risk 60-74 years 1-dose series) 2022 Depression Screening 10/10/2024 Diabetes: Annual Urine Albumin-Creatinine Ratio (uACR) 10/24/2024 Diabetes: Blood Sugar Control Test (HGBA1C) 10/24/2024 COVID-19 Vaccine ( season) 2025 05/04/2021, 04/03/2021 Influenza Vaccine (#1) 2025 06/01/2017 Breast Cancer Screening 01/25/2026 01/26/20 24, 01/23/2023, 01/30/2021, Additional history exists Diabetes: Annual GFR (Glomerular Filtration Rate) 04/22/2026 04/22/2025 Cholesterol Screening (Lipid Panel) 12/04/2029 12/04/2024, 12/03/2024 [...] Procedure Name Priority Date/Time Associated Diagnosis Comments CBC WITH AUTO DIFFERENTIAL Routine 04/22/2025 1:57 PM EDT Abnormal LFTs PAYNE FIBROSURE Routine 04/22/2025 1:57 PM EDT Abnormal LFTs ALPHA FETOPROTEIN TUMOR MARKER Routine 04/22/2025 1:57 PM EDT Abnormal LFTs PROTHROMBIN TIME WITH INR Routine 04/22/2025 1:57 PM EDT Abnormal LFTs COMPREHENSIVE METABOLIC PANEL Routine 04/22/2025 1:57 PM EDT Abnormal LFTs CBC AND DIFFERENTIAL Routine 04/22/2025 1:57 PM EDT Abnormal LFTs LIPID PANEL WITH REFLEX TO DIRECT LDL Routine 12/04/2024 9:51 AM EST Hyperlipemia Drug therapy HITESH SCREENING DIGITAL Routine 01/26/2024 10:43 AM EDT Encounter for screening mammogram for malignant neoplasm of breast from Last 3 Months or Most Recently Relevant to Health Maintenance Results * PAYNE fibrotest liver diease (04/22/2025 1:57 PM EDT) Pathologist [facility] PAYNE FibroSure See Below 05/02/2025 1:46 PM EDT [facility] Comment: PAYNE FibroSure(R) Plus SEE REPORT UNDER SEPARATE COVER. REPORT WILL BE SENT TO THE ORDERING LABORATORY VIA PRINTER OR FAX. ADDITIONAL COPIES OF THE ORIGINAL REPORT MAY ALSO BE OBTAINED BY CALLING [facility] at [phone] Blood Venous blood specimen / Unknown Venipuncture / Unknown 04/22/2025 1:57 PM EDT 04/22/2025 3:38 PM EDT [facility] BLOOD ORDERABLES Edited Result - Final [facility] [address] [place] [address] * CBC auto differential (04/22/2025 1:57 PM EDT) Pathologist [facility] WBC 7.3 4.8 - 10.8 K/mcL LAB HEMETOLOGY METHOD 04/22/2025 3:54 PM EDT [facility] RBC 4.40 3.80 - 4.80 M/mcL LAB HEMETOLOGY METHOD 04/22/2025 3:54 PM EDT [facility] Hemoglobin 13.0 11.5 - 16.0 g/dL LAB HEMETOLOGY METHOD 04/22/2025 3:54 PM EDT [facility] Hematocrit 39.7 35.0 - 47.0 % LAB HEMETOLOGY METHOD 04/22/2025 3:54 PM EDT [facility] MCV 90.4 79.0 - 98.0 FL LAB HEMETOLOGY METHOD 04/22/2025 3:54 PM EDT [facility] MCH 29.6 27.0 - 32.0 pcg LAB HEMETOLOGY METHOD 04/22/2025 3:54 PM EDT [facility] MCHC 32.7 32.0 - 37.0 g/dL LAB HEMETOLOGY METHOD 04/22/2025 3:54 PM EDT [facility] RDW 13.0 11.0 - 15.0 % LAB HEMETOLOGY METHOD 04/22/2025 3:54 PM EDT [facility] Platelets 185 130 - 400 K/mcL LAB HEMETOLOGY METHOD 04/22/2025 3:54 PM EDT [facility] MPV 10.6 7.0 - 11.0 FL LAB HEMETOLOGY METHOD 04/22/2025 3:54 PM EDT [facility] NRBC 0.0 <1.0 % LAB HEMETOLOGY METHOD 04/22[facility]2025 3:[facility] NRBC Absolute 0.00 <0.10 K/mcL LAB HEMETOLOGY METHOD 04/22/2025 3:54 PM EDT [facility] Neutrophils Relative 45.2 % LAB HEMETOLOGY METHOD 04/22/2025 3:54 PM EDT [facility] Lymphocytes Relative 46.8 % LAB HEMETOLOGY METHOD 04/22/2025 3:54 PM [facility] Monocytes Relative 5.5 % LAB HEMETOLOGY METHOD 04/22/2025 3:54 PM EDT [facility] Eosinophils Relative 1.5 % LAB HEMETOLOGY METHOD 04/22/2025 3:54 PM EDT [facility] Basophils Relative 0.7 % LAB HEMETOLOGY METHOD 04/22/2025 3:54 PM EDT [facility] Immature Granulocytes Relative 0.3 % LAB HEMETOLOGY METHOD 04/22/2025 3:54 PM EDT [facility] Neutrophils Absolute 3.28 1.50 - 7.00 K/mcL LAB HEMETOLOGY METHOD 04/22/2025 3:54 PM EDT [facility] Lymphocytes Absolute 3.40 1.00 - 5.00 K/mcL LAB HEMETOLOGY METHOD 04/22/2025 3:54 PM EDT [facility] Monocytes Absolute 0.40 0.20 - 1.00 K/[facility] LAB HEMETOLOGY METHOD 04/22/2025 3:54 PM EDT [facility] Eosinophils Absolute 0.11 0.00 - 0.50 K/[facility] LAB HEMETOLOGY METHOD 04/22/2025 3:54 PM EDT [facility] Basophils Absolute 0.05 0.00 - 0.20 K/[facility] LAB HEMETOLOGY METHOD 04/22/2025 3:54 PM EDT [facility] Immature Granulocytes Absolute 0.02 0.00 - 0.03 K/[facility] LAB HEMETOLOGY METHOD 04/22/2025 3:54 PM EDT [facility] Blood Venous blood specimen / Unknown Venipuncture / Unknown 04/22/2025 1:57 PM EDT 04/22/2025 3:39 PM EDT [facility] BLOOD ORDERABLES Final R esult [facility] [address] [place] [address], * Alpha fetoprotein tumor marker (04/22/2025 1:57 PM EDT) AFP <2.5 0.0 - 8.0 ng/mL LAB CHEMISTRY METHOD 04/22/2025 7:23 PM EDT [facility] Blood Venous blood specimen / Unknown Venipuncture / Unknown 04/22/2025 1:57 PM EDT 04/22/2025 3:39 PM EDT Narrative [facility] - 04/22/2025 7:23 PM EDT The Siemens Advia Centaur Chemiluminescent Immunoassay is used. Results obtained with different assay methods or kits cannot be used interchangeably. Results cannot be interpreted as absolute evidence of the presence or absence of malignant disease. [facility] BLOOD ORDERABLES Final R esult Performing Organization Address [facility]/ZIP Co de Phone Number [facility] [address] [place] [address], [place] [phone] * Prothrombin time with INR (04/22/2025 1:57 PM EDT) [facility] Protime 12.4 10.6 - 13.9 sec LAB COAGULATION METHOD 04/22/2025 3:53 PM EDT [facility] INR 1.0 LAB COAGULATION METHOD 04/22/2025 3:53 PM EDT [facility] Blood Venous blood specimen / Unknown Venipuncture / Unknown 04/22/2025 1:57 PM EDT 04/22/2025 3:38 PM EDT [facility] BLOOD ORDERABLES Final R esult Performing Organization Address [facility]/ZIP Co de Phone Number [facility] [address] [place] [address], [place] [phone] * (ABNORMAL) Comprehensive metabolic panel (04/22/2025 1:57 PM EDT) [facility] Sodium 137 133 - 145 mmol/L LAB CHEMISTRY METHOD 04/22/2025 6:47 PM EDT [facility] Potassium 4.0 3.5 - 5.5 mmol/L LAB CHEMISTRY METHOD 04/22/2025 6:47 PM EDT [facility] Chloride 104 96 - 110 mmol/L LAB CHEMISTRY METHOD 04/22/2025 6:47 PM EDT [facility] CO2 24 21 - 32 mmol/L LAB CHEMISTRY METHOD 04/22/2025 6:47 PM EDT [facility] Anion Gap 9 3 - 11 LAB CHEMISTRY METHOD 04/22/2025 6:47 PM [facility] Glucose 140(H) 70 - 100 mg/dL LAB CHEMISTRY METHOD 04/22/2025 6:47 PM [facility] BUN 19 5 - 25 mg/dL LAB CHEMISTRY METHOD 04/22/2025 6:47 PM [facility] Creatinine 0.73 0.50 - 1.10 mg/dL LAB CHEMISTRY METHOD 04/22/2025 6:47 PM [facility] eGFR 93 >=60 mL/min/1. 73m2 LAB CHEMISTRY METHOD 04/22/2025 6:47 PM [facility] Comment:Calculation based on the Chronic Kidney Disease Epidemiology Collaboration (CKD-EPI) equation refit without adjustment for race. BUN/Creatinine Ratio 26.0 LAB CHEMISTRY METHOD 04/22/2025 6:47 PM [facility] Calcium 9.0 8.5 - 10.5 mg/dL LAB CHEMISTRY METHOD 04/22/2025 6:47 PM [facility] AST (SGOT) 38 10 - 42 unit/L LAB CHEMISTRY METHOD 04/22/2025 6:47 PM [facility] ALT (SGPT) 55 10 - 60 unit/L LAB CHEMISTRY METHOD 04/22/2025 6:47 PM [facility] Alkaline Phosphatase 120 42 - 121 unit/L LAB CHEMISTRY METHOD 04/22/2025 6:47 PM [facility] Total Protein 8.3(H) 6.0 - 8.0 g/dL LAB CHEMISTRY METHOD 04/22/2025 6:47 PM [facility] Albumin 3.6 3.2 - 5.0 g/dL LAB CHEMISTRY METHOD 04/22/2025 6:47 PM [facility] Total Bilirubin 0.4 0.0 - 1.4 mg/dL LAB CHEMISTRY METHOD 04/22/2025 6:47 PM EDT [facility] Blood Venous blood specimen / Unknown Venipuncture / Unknown 04/22/2025 1:57 PM EDT 04/22/2025 3:39 PM EDT us [facility] BLOOD ORDERABLES Final R esult [facility] [address] [place] [address], * Lipid panel with reflex to direct LDL (12/04/2024 9:51 AM EST) Cholesterol 141 0 - 200 mg/dL LAB CHEMISTRY METHOD 12/04/2024 11:33 AM EST [facility] Triglycerides 126 0 - 150 mg/dL LAB CHEMISTRY METHOD 12/04/2024 11:33 AM EST [facility] HDL 45 >=40 mg/dL LAB CHEMISTRY METHOD 12/04/2024 11:33 AM EST [facility] LDL Calculated 71 0 - 100 mg/dL LAB CHEMISTRY METHOD 12/04/2024 11:33 AM EST [facility] VLDL Cholesterol Leoncio 25.2 mg/dL LAB CHEMISTRY METHOD 12/04/2024 11:33 AM EST [facility] Non HDL Chol. (LDL+VLDL) 96 <145 mg/dL LAB CHEMISTRY METHOD 12/04/2024 11:33 AM EST [facility] Chol/HDL Ratio 3.1 0.0 - 4.4 LAB CHEMISTRY METHOD 12/04/2024 11:33 AM [facility] Blood Venous blood specimen / Unknown Venipuncture / Unknown 12/04/2024 9:51 AM EST 12/04/2024 10:26 AM EST us Enrique Mendoza MD LAB BLOOD ORDERABLES Final Re sult [facility] [address] [place] [address], * [facility] SCREENING DIGITAL (01/26/2024 10:43 AM EDT) Anatomical Region Laterality Modality Mammography 01/26/2024 10:0 4 AM EDT Narrative 01/26/2024 10:[address] [facility] Diagnostic Imaging Department [address] [place] [address] Patient: JUAN CARLOS MELGOZA./Age/Sex: 1960 - 63 - F Unit#: [id number] Location/Status: [facility] CLI Mnemonic/Ordering Site: [facility] Ordering Physician: CLAU LAW MD [facility] Screening Digital - 01/26/24 - 1022 Report Status:Signed EXAM: [facility] Screening Digital EXAM DATE AND TIME: 01/26/2024 10:23 AM HISTORY: Annual screening COMPARISON: Multiple exams dating back to 2018 TECHNIQUE: Bilateral digital breast tomosynthesis was performed in the CC and MLO projections. Computer aided detection with [employer] 3D 3.1 was employed. TISSUE DENSITY: b. There are scattered areas of fibroglandular density. FINDINGS: No suspicious masses, grouped microcalcifications, or areas of architectural distortion are seen. The skin and vascularity are unremarkable. IMPRESSION: Stable mammographic appearance of the breasts. No evidence of malignancy is seen. A negative mammogram in the presence of a clinically suspicious palpable abnormality does not preclude the possibility of malignancy or alter the indications for biopsy. BI-RADS: Category 1: Negative RECOMMENDATION(S): 1: Routine screening mammogram BILATERAL in 1 year. 3341F, 7014F Dictating Physician: PEREZ KOROMA MD Electronically Signed by: PEREZ KOROMA MD Dic Date/Time: 01/26/24 1042 Sign date/Time: 01/26/24 1043 Procedure Note Perez Koroma MD - 05/28/2024 [facility] Diagnostic Imaging Department [address] [place], [place] [id number] Patient: JUAN CARLOS MELGOZA./Age/Sex: 1960 - 63 - F Unit#: [id number] Location/Status: [facility] CLI Mnemonic/Ordering Site: [facility] Ordering Physician: CLAU LAW MD [facility] Screening Digital - 01/26/24 - 1022 Report Status:Signed EXAM: [facility] Screening Digital EXAM DATE AND TIME: 01/26/2024 10:23 AM HISTORY: Annual screening COMPARISON: Multiple exams dating back to 2018 TECHNIQUE: Bilateral digital breast tomosynthesis was performed in the CCand MLO projections. Computer aided detection with [employer] 3D 3.1was employed. TISSUE DENSITY: b. There [...] Most Recently Relevant to Health Maintenance Insurance [facility] Care Teams Rotary Drum Tanner Relationship Specialty Start Date End Date Clau Law MD [address] [place] [id number] PCP - General Internal Medicine 10/12/24
== END 2025-06-26 12:05 | disposition home or self-care (01) ==
LOC: HO.ENCR 11:17
PROVIDERS: PCP Internal Medicine; Visit Provider Internal Medicine
DX: E11.65 Type 2 diabetes mellitus with hyperglycemia (principal)

== ENCOUNTER → 2025-06-26 11:16 | Outpatient (BNVA) | payer OTHER, SELFPAY | PROVIDERS: PCP Internal Medicine; Visit Provider Internal Medicine | DX: E11.65 Type 2 diabetes mellitus with hyperglycemia (principal) | CPT/HCPCS: 82947; 99212 ==

== ENCOUNTER 2025-08-14 10:23 | Outpatient (AMB) | payer OTHER, SELFPAY ==
--- NOTE | 2025-08-14 10:28 | A.OFFVIS_ITS ---
Vital Signs 08/14/25 10:30 Height 5 ft 2 in Weight 176 lb 5.917 oz BMI 32.3 BP 146/76 H Blood Pressure Location Rt brachial Position Sitting Pulse 76 Pulse Source Pulse Oximeter Pulse Oximetry (%) 96 Oxygen Delivery Method Room Air Intake Visit Reasons: DM follow up Intake Note: Patient presents today for a follow-up on Type 2 Diabetes Mellitus: Last Diabetic Eye exam: 07/29/2025, [facility] Last Podiatry Visit: Does not have a Ticket Writer at the moment. Most Recent HgA1C: 6.6%, 08/14/2025 Random Glucose: 162 mg/dL, Today Range Operator Required: Yes Range Operator Language: Welsh Range Operator Services: Range Operator Offered & Declined Range Operator Name: DAUGHTER-LAW Information Interpreted: non-clinical & clinical Accompanied by: Daughter Allergies nicotine Allergy (Unknown, Verified 06/26/25 11:27) Unknown lisinopril Adverse Reaction (Unknown, Verified 06/26/25 11:27) Unknown IV dye Allergy (Unknown, Uncoded 06/26/25 11:27) Anaphylaxis HPI Comments Details: This is a 64-year-old female presenting for diabetes follow up Medical history: HLD, HTN, hepatic steatosis, IBS, ANN, psoriasis PCP: [place] Daughter is interpreting in today's visit. Mother does understand some Estonian Current medications: Metformin 500mg daily Mounjaro 2.5mg weekly Ozempic caused nausea Trucility caused headaches. Stopped glipizide 10mg which she was on only for a very short amount of time-was having headaches x 2-3 weeks. Lantus gave her bloating and weight gain. A1C 6.6% from 6.9% on 05/10/25 from 7.1% from 8.6% Traditional glucometer-average 170 range 119-332 1.5/day Has had recent liver enzyme increase. Her statin was stopped and they tell me the numbers normalized This was her second statin. Sees GI at [facility]. She was instructed to repeat cmp and lipid prior to her next visit however she has not done this and will do this today Saw v belt inspector Does endorse some mild foot neuropathy. Eye exam 07/2026 Father had hx of CVA ROS CONSTITUTIONAL: Denies weight loss, fever and chills. HEENT: Denies changes in vision and hearing. RESPIRATORY: Denies SOB and cough. CV: Denies palpitations and CP GI: Denies abdominal pain, nausea, vomiting and diarrhea. : Denies dysuria and urinary frequency. MSK: Denies new myalgia and joint pain. SKIN: Denies rash and pruritus. NEUROLOGICAL: Denies headache PSYCHIATRIC: Denies recent changes in mood. PHYSICAL EXAM: GENERAL: Alert and oriented x 3. NAD EYES: EOMI. Anicteric. HENT: Moist mucous membranes. No scleral icterus. No cervical lymphadenopathy. LUNGS: Clear to auscultation bilaterally. CARDIOVASCULAR: Regular rate and rhythm. No murmur. No JVD. ABDOMEN: Soft, non-tender +bs EXTREMITIES: No edema. Non-tender. SKIN: No rashes or lesions. Warm. NEUROLOGIC: No focal neurological deficits. CN II-XII grossly intact PSYCHIATRIC: Cooperative. Appropriate mood and affect [facility] Medical History Hyperlipidemia Surgical History History of kidney surgery Hx of cholecystectomy History of ear surgery Family History Mother No known health problems Father High blood pressure Social History Alcohol intake: never Patient Tobacco Use Status: Former Tobacco user Physical Exam Vital Signs: Last Vital Signs Pulse 76 08/14/25 10:30 BP 146/76 H 08/14/25 10:30 Pulse Ox 96 08/14/25 10:30 Oxygen Delivery Method Room Air 08/14/25 10:30 BMI result Body Mass Index 32.3 Results AMB Hemoglobin A1c AMB Hemoglobin A1c 6.6 % Last Edit by CRISTY Trent on 08/14/25 10:50 Results Reviewed Results Reviewed: Laboratory Last Values Glucose (Clinic) 162 mg/dL (60-115) H 08/14/25 10:36 Hgb A1c (Clinic) 6.6 % (4.0-6.0) H 08/14/25 10:38 Assessment & Plan Assessment & Plan (1) Type 2 diabetes mellitus: Code(s): E11.9 - Type 2 diabetes mellitus without complications Category: Medical Qualifiers: Diabetes mellitus complication status: with hyperglycemia Diabetes mellitus group home insulin use: without supervisor intermediates use Qualified Code(s): E11.65 - Type 2 diabetes mellitus with hyperglycemia Plan 64 year old female for diabetic follow up Diabetes is well controlled on current medications She will continue current dosing. Did discuss she could increase mounjaro and stop/hold metformin Eye exam UTD Treat hypoglycemia by rules of 15s Follow up in 3 months or sooner as needed Orders: Orders AMB Hemoglobin A1c Today E11.65 - Type 2 diabetes mellitus with hyperglycemia Coding Level of Care Code Est Pt Level 4 (59732) Diagnoses Type 2 diabetes mellitus with hyperglycemia, without long-term current use of insulin E11.65 Diabetes mellitus complication status: with hyperglycemia Diabetes mellitus group home insulin use: without supervisor intermediates use
[2025-08-14 10:30] VITALS: BP 146/76; PULSE 76; O2SAT 96; BMI 32.3
[2025-08-14 10:40] LABS: Glucose, Whole Blood 162 mg/dL (60-115)
--- OUTSIDE RECORDS SUMMARY | 2025-08-14 12:08 | XMS_ITS | Clinical Summary ---
Author Organization [facility] Address [address] [place] [address] Phone Care Team Providers Care Bilingual Office Assistant Name Role Phone Magdaleno Law MD Primary Care Provider [phone] Allergies Active Allergy Reactions Criticality Noted Date Comments Fish Containing Products 07/29/2025 Regular fish like cod and talapia not shellfish Iodinated Contrast Media 10/24/2024 Tree Nuts 07/29/2025 Wheat 07/29/2025 Medications irbesartan-hydroCH LOROthiazide (AVALIDE) 300-12.5 mg per [...] 180 each 1 04/24/20 25 026 Active polyethylene glycol (Golytely) 236-22.74-6.74 -5.86 gram solution Take 4L by mouth once for one dose. May substitue any PEG. Starting at 2PM the day before your procedure drink 1 8oz glasses at your own pace until you complete half of the gallon. Finish 2nd half of the gallon at 8PM. 4000 mL 07/22/20 25 Active bisacodyL (DULCOLAX) 5 mg EC tablet Take 2 tablets by mouth right before beginning bowel prep. See instructions provided by the office 2 tablet 07/22/20 25 Active tirzepatide (Mounjaro) 2.5 mg/0.5 mL injection Inject 0.5 mL (2.5 mg total) under the skin every 7 (seven) days. Active Active Problems Problem Noted Date Diagnosed Date Adenomatous polyp of colon 10/24/2024 Assessment & Plan (04/24/2025 12:55 PM EDT): Last colonoscopy 07/2020 5-year surveillance due Colon/EGD Hx polyps (5 yr/07/2020) Cirrhosis/rule out varices Aide Moore pt Call daughter- in- law Emily [phone] Colonoscopy and EGD reviewed with patient. Risks discussed including bleeding perforation and missed lesions. There is always a chance surgery or transfusion could be required. Prep discussed with patient. Risks of anesthesia reviewed. Patient advised will need a ride home, not to have liquids for at least 3 hours prior to the procedure. Diabetes (CMS/HCC V24, CMS/HCC V28) 10/24/2024 Hyperlipidemia 10/24/2024 Eczema 10/24/2024 Gastroesophageal [...] day. COPD (chronic obstructive pu lmonary disease) ([facility] V24, [facility] V28) 10/24/2024 OAB (overactive bladder) 10/24/2024 Encounters Date Type Department Care Team Description 08/07/2025 Results Follow-Up Gastroenterology - [facility] 175 [facility] [address] [place] [address] Manuel Moore MD 08/05/2025 10:43 AM EDT Anesthesia Event [facility] [address] [place] [phone] Ubrano Friedman MD 08/05/2025 8:30 AM EDT - 08/05/2025 11:59 PM EDT Hospital Encounter [facility] [address] [place] [phone] Manuel Moore MD Dickman, Christy L, CRNA Gomes, Sheldon B, MD Other cirrhosis of liver ([facility] V24, [facility] V28); Hx of colonic polyps Discharge Disposition: Home or Self Care 08/05/2025 Results Follow-Up Gastroenterology - [address] [facility] 299 [facility] [address] [place] [address] Manuel Moore MD 07/30/2025 Results Follow-Up Gastroenterology - [address] [facility] 299 [facility] [address] [place] [address] Manuel Moore MD 07/26/2025 8:22 AM EDT - 07/26/2025 11:59 PM EDT Hospital Encounter [facility] [address] [place] [phone] Other cirrhosis of liver ([facility] V24, [facility] V28) Discharge Disposition: Home or Self Care from Last 3 Months Immunizations Immunization Administration Dates Next Due Influenza Quadrivalent, 0.5m l, preservative free (Fluarix; FluLaval; Fluzone) ages 6mo and older (Afluria) 3yo and older 06/01/2017 Surgical History Surgery Date Site/Laterality Comments COLONOSCOPY 07/10/2020 - 08/09/2020 SSAx1, left sided tics (5 yr) ESOPHAGOGASTRODUODENOSCOPY 07/10/2020 - 08/09/2020 nl COLONOSCOPY 03/10/2011 - 04/08/2011 nl, fair prep (5 yr) CHOLECYSTECTOMY COLOSTOMY INNER EAR SURGERY Medical History Medical History Date Comments Cirrhosis of liver ([facility] V24, [facility] V28) GERD (gastroesophageal reflux disease) OAB (overactive bladder) Colon polyp Diabetes mellitus ([facility] V24, [facility] V28) Hypertension Hyperlipidemia COPD (chronic obstructive pulmonary disease) ([facility] V24, [facility] V28) Diverticulosis Social History Tobacco Use Types Packs/Day Years Used Date Smoking Tobacco: Former Cigarettes Smokeless Tobacco: Never Tobacco Cessation:Counseling Given: Not Answered Alcohol Use Standard Drinks/Week Comments Not Currently 0 (1 standard drink = 0.6 oz pur e alcohol) Interpersonal Safety Answer Date Record ed Physical Abuse Unrecognized value 08/05/2025 Verbal Abuse Unrecognized value 08/05/2025 Comments Unknown Sex and Gender Information Value Date Recorded Sex Assigned at Female 01/24/2025 1:45 PM EDT Legal Sex Female 9:22 AM EST Gender Identity Female 05/28/2025 1:16 PM EDT Sexual Orientation Straight 05/28/2025 1: 16 PM EDT Obstetrics History Last Filed Vital Signs Vital Sign Reading Time Taken Comments Blood Pressure 110/68 08/05/2025 11:34 AM EDT Pulse 82 08/05/2025 11:34 AM EDT Temperature 35.9 C (96.7 F) 08/05/2025 11:14 AM EDT Respiratory Rate 16 08/05/2025 11:34 AM EDT Oxygen Saturation 98% 08/05/2025 11:34 AM EDT Inhaled Oxygen Concentration - - Weight 79.4 kg (175 lb) 08/05/2025 10:21 AM EDT Height 157.5 cm (5' 2 ) 08/05/2025 10:21 AM EDT Body Mass Index 32.01 08/05/2025 10:21 AM EDT Plan of Treatment Upcoming Encounters Date Type Department Care Team (Late st Contact Info) Description 09/30/2025 10:00 AM EST Office Visit Orthopedic Surgery - [facility] [address] [facility] [address] [place] [phone] Arnold Coto, DPM [address] [place] [phone] 01/21/2026 10:00 AM EDT Office Visit Gastroenterology - [address] [facility] [address] [place] [phone] Harmony Howell NP [address] [facility] [address] [place] [address] Health Maintenance Due Date Last Done Comments Diabetes: Annual Foot Exam 1972 Diabetes: Annual Retina Eye Exam 1972 DTaP,Tdap,and Td Vaccines (1 - Tdap) 1981 Pneumococcal Vaccine: 50+ Years (1 of 2 - PCV) 1981 Cervical Cancer Screening: Pap Smear 1983 RSV Immunization Adult Patients (1 - Risk 50-74 years 1-dose series) 2012 Zoster Vaccines (1 of 2) 2012 HIV Screening 09/06/2022 Hepatitis C Screening 09/06/2022 Social Influencers of Health Screening 09/06/2022 Depression Screening 10/10/2024 Diabetes: Annual Urine Albumin-Creatinine Ratio (uACR) 10/24/2024 Diabetes: Blood Sugar Control Test (HGBA1C) 10/24/2024 COVID-19 Vaccine ( season) 2025 05/04/2021, 04/03/2021 Influenza Vaccine (#1) 2025 06/01/2017 Breast Cancer Screening 01/25/2026 01/26/20 24, 01/23/2023, 01/30/2021, Additional history exists Diabetes: Annual GFR (Glomerular Filtration Rate) 04/22/2026 04/22/2025 Cholesterol Screening (Lipid Panel) 12/04/2029 12/04/2024, 12/03/2024 Colorectal Cancer Screening: Colonoscopy 08/05/2030 08/05/2025 HIB Vaccines Aged Out No longer eligi [...] on patient's age to complete this topic Goals Goal Patient Goal Type Associated Problems Recent Progress Patient-Stated? Author Autogenera sonia Goal Care Plan Autogenerated Problem No Anali Portillo Procedures Procedure Name Priority Date/Time Associated Diagnosis Comments COLONOSCOPY Routine 08/05/2025 11:13 AM EDT Other cirrhosis of liver (CMS/HCC V24, CMS/HCC V28) Hx of colonic polyps EGD Routine 08/05/2025 11:13 AM EDT Other cirrhosis of liver (CMS/HCC V24, CMS/HCC V28) Hx of colonic polyps TISSUE EXAM Routine 08/05/2025 11:01 AM EDT Other cirrhosis of liver (CMS/HCC V24, CMS/HCC V28) Hx of colonic polyps US ABDOMEN LIMITED Routine 07/26/2025 8: 46 AM EDT Other cirrhosis of liver (CMS/HCC V24, CMS/HCC V28) COMPREHENSIVE METABOLIC PANEL Routine 04/22/2025 1:57 PM EDT Abnormal LFTs LIPID PANEL WITH REFLEX TO DIRECT LDL Routine 12/04/2024 9:51 AM EST Hyperlipemia Drug therapy HITESH SCREENING DIGITAL Routine 01/26/2024 10:43 AM EDT Encounter for screening mammogram for malignant neoplasm of breast from Last 3 Months or Most Recently Relevant to Health Maintenance Results * COLONOSCOPY Anesthesia - MAC; [facility] ENDOSCOPY (08/05/2025 11:13 AM EDT) Anatomical Region Laterality Modality Other 08/05/2025 10:4 8 AM EDT Impressions 08/05/2025 11:08 AM EDT - One 5 mm polyp at the splenic flexure, removed with a cold snare. Resected and retrieved. - One 5 mm polyp in the descending colon, removed with a cold snare. Resected and retrieved. - Diverticulosis in the sigmoid colon. - The examination was otherwise normal on direct and retroflexion views. Recommendation: - Await pathology results. - Repeat colonoscopy in 5 years for surveillance. Narrative 08/05/2025 11:08 AM EDT [facility] Patient Name: Juan Carlos Melgoza Procedure Date: 08/05/2025 10:48 AM Date of : 1960 Age: 64 Room: ROOM 14 Gender: Female Note Status: Finalized Attending MD: Manuel Moore MD, Procedure Date No Time: 08/05/2025 Procedure: Colonoscopy Indications: High risk colon cancer surveillance: Personal history of colonic polyps Providers: Manuel Moore MD Referring MD: Manuel Moore MD Medicines: Propofol per Anesthesia Complications: No immediate complications. Estimated Blood Loss: Estimated blood loss was minimal. Procedure: Pre-Anesthesia Assessment: - ASA Grade Assessment: III - A patient with severe systemic disease. After I obtained informed consent, the scope was passed under direct vision. Throughout the procedure, the patient's blood pressure, pulse, and oxygen saturations were monitored continuously.The Olympus Pediatric Colonoscope was introduced through the anus and advanced to the cecum, identified by appendiceal orifice and ileocecal valve. The colonoscopy was performed without difficulty. The patient tolerated the procedure well. The quality of the bowel preparation was good. Findings: The perianal and digital rectal examinations were normal. A 5 mm polyp was found in the splenic flexure. The polyp was sessile. The polyp was removed with a cold snare. Resection and retrieval were complete. A 5 mm polyp was found in the descending colon. The polyp was sessile. The polyp was removed with a cold snare. Resection and retrieval were complete. Multiple diverticula were found in the sigmoid colon. The exam was otherwise without abnormality on direct and retroflexion views. Procedure Code(s): --- Professional --- 86225, Colonoscopy, flexible; with removal of tumor(s), polyp(s), or other lesion(s) by snare technique Diagnosis Code(s): --- Professional --- D12.3, Benign neoplasm of transverse colon (hepatic flexure or splenic flexure) D12.4, Benign neoplasm of descending colon K57.30, Diverticulosis of large intestine without perforation or abscess without bleeding Z86.010, Personal history of colonic polyps CPT copyright 2020 [employer]. All rights reserved. The codes documented in this report are preliminary and upon outreach assistant review may be revised to meet current compliance requirements. Manuel Moore MD 08/05/2025 11:08:28 AM This report has been signed electronically.Manuel Moore MD Number of Addenda: 0 Note Initiated On: 08/05/2025 10:48 AM Scope In: Scope Out: Endoscopy Department at [facility] - [address] [place] [phone] Procedure Note Manuel Moore MD - 08/05/2025 [facility] Patient Name: Juan Carlos Melgoza Procedure Date: 08/05/2025 10:48 AM Date of : 1960 Age: 64 Room: ROOM 14 Gender: Female Note Status: Finalized Attending MD: Manuel Moore MD, Procedure Date No Time: 08/05/2025 Procedure: Colonoscopy Indications: High risk colon cancer surveillance: Personalhistory of colonic polyps Providers: Manuel Moore MD Referring MD: Maunel Moore MD Medicines: Propofol per Anesthesia Complications: No immediate complications. Estimated Blood Loss: Estimated blood loss was minimal. Procedure: Pre-Anesthesia Assessment: - ASA Grade Assessment: III - A patient with severe systemic disease. After I obtained informed consent, the scope was passed under direct vision. Throughout theprocedure, the patient's blood pressure, pulse, and oxygen saturations were monitored continuously.The Olympus Pediatric Colonoscope was introduced through theanus and advanced to the cecum, identified byappendiceal orifice and ileocecal valve. The colonoscopy was performed without difficulty. The patient tolerated the procedure well. The quality of the bowel preparation was good. Findings: The perianal and digital rectal examinations were normal. A 5 mm polyp was found in the splenic flexure. The polyp was sessile. The polyp was removed with acold snare. Resection and retrieval were complete. A 5 mm polyp was found in the descending colon. The polyp was sessile. The polyp was removed with acold snare. Resection and retrieval were complete. Multiple diverticula were found in the sigmoidcolon. The exam was otherwise without abnormality ondirect and retroflexion views. Procedure Code(s): --- Professional --- 90265, Colonoscopy, flexible; with removal of tumor(s), polyp(s), or other lesion(s) by snare technique Diagnosis Code(s): --- Professional --- D12.3, Benign neoplasm of transverse colon (hepatic flexure or splenic flexure) D12.4, Benign neoplasm of descending colon K57.30, Diverticulosis of large intestine without perforation or abscess without bleeding Z86.010, Personal history of colonic polyps CPT copyright 2020 [employer]. All rights reserved. The codes documented in this report are preliminary and upon outreach assistant reviewmay be revised to meet current compliance requirements. Manuel Moore MD 08/05/2025 11:08:28 AM This report has been signed electronically.Manuel Moore MD Number of Addenda: 0 Note Initiated On: 08/05/2025 10:48 AM Scope In: Scope Out: Endoscopy Department at [facility] - [address] [place] [phone] IMPRESSION: - One 5 mm polyp at the splenic flexure, removed with a cold snare. Resected and retrieved. - One 5 mm polyp in the descending colon, removedwith a cold snare. Resected and retrieved. - Diverticulosis in the sigmoid colon. - The examination was otherwise normal on directand retroflexion views. Recommendation: - Await pathology results. - Repeat colonoscopy in 5 years for surveillance. us Manuel Moore MD GI~PROCEDURE ORDERABLES Fin al Result * EGD Anesthesia - MAC; [facility] ENDOSCOPY (08/05/2025 11:13 AM EDT) Anatomical Region Laterality Modality Other 08/05/2025 11:0 8 AM EDT Impressions 08/05/2025 11:13 AM EDT - Normal esophagus. - Normal stomach. - Normal examined duodenum. - No specimens collected. Recommendation: - Continue present medications. - Repeat upper endoscopy in 3 years for surveillance. Narrative 08/05/2025 11:13 AM EDT [facility] Patient Name: Juan Carlos Melgoza Procedure Date: 08/05/2025 11:08 AM Date of : 1960 Age: 64 Room: ROOM 14 Gender: Female Note Status: Finalized Attending MD: Manuel Moore MD, Procedure Date No Time: 08/05/2025 Procedure: Upper GI endoscopy Indications: Cirrhosis rule out esophageal varices Providers: Manuel Moore MD Referring MD: Manuel Moore MD Medicines: Propofol per Anesthesia Complications: No immediate complications. Estimated Blood Loss: Estimated blood loss: none. Procedure: Pre-Anesthesia Assessment: - ASA Grade Assessment: III - A patient with severe systemic disease. After obtaining informed consent, the endoscope was passed under direct vision. Throughout the procedure, the patient's blood pressure, pulse, and oxygen saturations were monitored continuously.The Endoscope was introduced through the mouth, and advanced to the second part of duodenum. The upper GI endoscopy was accomplished without difficulty. The patient tolerated the procedure well. Findings: The esophagus was normal. The stomach was normal. The examined duodenum was normal. Procedure Code(s): --- Professional --- 11902, Esophagogastroduodenoscopy, flexible, transoral; diagnostic, including collection of specimen(s) by brushing or washing, when performed (separate procedure) Diagnosis Code(s): --- Professional --- K74.60, Unspecified cirrhosis of liver CPT copyright 2020 [employer]. All rights reserved. The codes documented in this report are preliminary and upon outreach assistant review may be revised to meet current compliance requirements. Manuel Moore MD 08/05/2025 11:13:42 AM This report has been signed electronically.Manuel Moore MD Number of Addenda: 0 Note Initiated On: 08/05/2025 11:08 AM Scope In: Scope Out: Endoscopy Department at [facility] - [address] [place] [phone] Procedure Note Manuel Moore MD - 08/05/2025 [facility] Patient Name: Juan Carlos Melgoza Procedure Date: 08/05/2025 11:08 AM Date of : 1960 Age: 64 Room: ROOM 14 Gender: Female Note Status: Finalized Attending MD: Manuel Moore MD, Procedure Date No Time: 08/05/2025 Procedure: Upper GI endoscopy Indications: Cirrhosis rule out esophageal varices Providers: Manuel Moore MD Referring MD: Manuel Moore MD Medicines: Propofol per Anesthesia Complications: No immediate complications. Estimated Blood Loss: Estimated blood loss: none. Procedure: Pre-Anesthesia Assessment: - ASA Grade Assessment: III - A patient with severe systemic disease. After obtaining informed consent, the endoscope was passed under direct vision. Throughout theprocedure, the patient's blood pressure, pulse, and oxygen saturations were monitored continuously.TheEndoscope was introduced through the mouth, and advanced tothe second part of duodenum. The upper GI endoscopy was accomplished without difficulty. The patienttolerated the procedure well. Findings: The esophagus was normal. The stomach was normal. The examined duodenum was normal. Procedure Code(s): --- Professional --- 11708, Esophagogastroduodenoscopy, flexible, transoral; diagnostic, including collection of specimen(s) by brushing or washing, when performed (separate procedure) Diagnosis Code(s): --- Professional --- K74.60, Unspecified cirrhosis of liver CPT copyright 202 [employer]. All rights reserved. The codes documented in this report are preliminary and upon outreach assistant reviewmay be revised to meet current compliance requirements. Manuel Moore MD 08/05/2025 11:13:42 AM This report has been signed electronically.Manuel Moore MD Number of Addenda: 0 Note Initiated On: 08/05/2025 11:08 AM Scope In: Scope Out: Endoscopy Department at [facility] - [address] [place] [phone] IMPRESSION: - Normal esophagus. - Normal stomach. - Normal examined duodenum. - No specimens collected. Recommendation: - Continue present medications. - Repeat upper endoscopy in 3 years forsurveillance. us Manuel Moore MD GI~PROCEDURE ORDERABLES Fin al Result * Tissue exam (08/05/2025 11:01 AM EDT) Final Diagnosis A. Large intestine, Splenic flexure, polyp x1: - Tubular adenoma. B. Large Intestine, Left/Descending Colon, polyp x1: - Tubular adenoma. 08/06/2025 11:49 AM EDT [facility] at 1149 EDT Gross Description A. Large intestine, Splenic flexure, polyp x1: Labeled polyp x 1 splenic flex . Received in green-stained formalin, are two soft to friable, patel, thin, polypoid tissues measuring approximately 0.2 cm in greatest diameter, with minimal attached fecal/food debris, which are wrapped in paper and submitted in toto in one cassette, two pieces, multiple levels. B. Large Intestine, Left/Descending Colon, polyp x1: Labeled polyp x 1 desc colon . Received in green-stained formalin, is a soft, thin, patel-pink, 0.3 cm in greatest diameter polypoid tissue which is inked black at the base, wrapped in paper and submitted in toto in one cassette, one piece, multiple levels. TS 08/06/2025 11:49 AM EDT [facility] Disclaimer Unless otherwise specified, all tissue is 10% NB formalin fixed and paraffin embedded. 08/06/2025 11:49 AM EDT [facility] Tissue Structure of left colic flexure / Unknown 08/05/2025 11:01 AM EDT 08/05/2025 11:56 AM EDT Tissue specimen (specimen) Descending colon structure / Unknown 08/05/2025 11:04 AM EDT 08/05/2025 11:56 AM EDT us Manuel Moore MD LAB PATHOLOGY ORDERABLES Fi nal Result [facility] [address] [place] [address], [place] [phone] * US Abdomen Limited (07/26/2025 8:46 AM EDT) Anatomical Region Laterality Modality Body Ultrasound 07/29/2025 3:06 PM EDT Impressions 07/29/2025 3:07 PM EDT Nodular liver contour consistent with cirrhosis. No focal liver lesion. -------- FINAL REPORT -------- Dictated By: Greg Whipple Dictated Date: 07/29/2025 15:06 ET Assigned Physician: Greg Whipple Reviewed and Electronically Signed By: Greg Whipple Signed Date: 07/29/2025 15:07 ET Workstation ID: [id number] Transcribed By: Self Edit Transcribed Date: 07/29/2025 15:06 ET Narrative 07/29/2025 3:07 PM EDT PROCEDURE: Right upper quadrant ultrasound. HISTORY: Cirrhosis hepatoma screening due 07/2025. COMPARISON: 10/26/2023. CT 02/25/2025. TECHNIQUE: Grayscale, color Doppler, and spectral Doppler ultrasound evaluation of the right upper quadrant of the abdomen. FINDINGS: LIVER: Nodular contour. Echogenic parenchyma. No focal lesion. Normal flow in the main portal vein. BILIARY: Cholecystectomy. Normal caliber biliary tree with no ductal filling defect. PANCREAS: Visualized portions are normal. RIGHT KIDNEY: Normal size and echotexture. No hydronephrosis or focal lesion. SPLEEN: Normal size, measuring up to 11.8 cm. Procedure Note Greg Whipple MD - 07/29/2025 PROCEDURE: Right upper quadrant ultrasound. HISTORY: Cirrhosis hepatoma screening due 07/2025. COMPARISON: 10/26/2023. CT 02/25/2025. TECHNIQUE: Grayscale, color Doppler, and spectral Doppler ultrasoundevaluation of the right upper quadrant of the abdomen. FINDINGS: LIVER: Nodular contour. Echogenic parenchyma. No focal lesion. Normalflow in the main portal vein. BILIARY: Cholecystectomy. Normal caliber biliary tree with no ductalfilling defect. PANCREAS: Visualized portions are normal. RIGHT KIDNEY: Normal size and echotexture. No hydronephrosis or focallesion. SPLEEN: Normal size, measuring up to 11.8 cm. IMPRESSION: Nodular liver contour consistent with cirrhosis. No focal liver lesion. -------- FINAL REPORT -------- Dictated By: Greg Whipple Dictated Date: 07/29/2025 15:06 ET Assigned Physician: Greg Whipple Reviewed and Electronically Signed By: Greg Whipple Signed Date: 07/29/2025 15:07 ET Workstation ID: [id number] Transcribed By: Self Edit Transcribed Date: 07/29/2025 15:06 ET us Kem [facility] IMG US PROCEDURES Final Resu lt * (ABNORMAL) Comprehensive metabolic panel (04/22/2025 1:57 PM EDT) Sodium 137 133 - 145 mmol/L LAB CHEMISTRY METHOD 04/22/2025 6:47 PM [facility] Potassium 4.0 3.5 - 5.5 mmol/L LAB CHEMISTRY METHOD 04/22/2025 6:47 PM [facility] Chloride 104 96 - 110 mmol/L LAB CHEMISTRY METHOD 04/22/2025 6:47 PM [facility] CO2 24 21 - 32 mmol/L LAB CHEMISTRY METHOD 04/22/2025 6:47 PM [facility] Anion Gap 9 3 - 11 LAB CHEMISTRY METHOD 04/22/2025 6:47 PM [facility] Glucose 140(H) 70 - 100 mg/dL LAB CHEMISTRY METHOD 04/22/2025 6:47 PM [facility] BUN 19 5 - 25 mg/dL LAB CHEMISTRY METHOD 04/22/2025 6:47 PM [facility] Creatinine 0.73 0.50 - 1.10 mg/dL LAB CHEMISTRY METHOD 04/22/2025 6:47 PM [facility] eGFR 93 >=60 mL/min/1. 73m2 LAB CHEMISTRY METHOD 04/22/2025 6:47 PM [facility] Comment:Calculation based on the Chronic Kidney Disease Epidemiology Collaboration (CKD-EPI) equation refit without adjustment for race. BUN/Creatinine Ratio 26.0 LAB CHEMISTRY METHOD 04/22/2025 6:47 PM [facility] Calcium 9.0 8.5 - 10.5 mg/dL LAB CHEMISTRY METHOD 04/22/2025 6:47 PM [facility] [facility] LAB AST (SGOT) 38 10 - 42 unit/L LAB CHEMISTRY METHOD 04/22/2025 6:47 PM [facility] ALT (SGPT) 55 10 - 60 unit/L LAB CHEMISTRY METHOD 04/22/2025 6:47 PM [facility] Alkaline Phosphatase 120 42 - 121 unit/L LAB CHEMISTRY METHOD 04/22/2025 6:47 PM [facility] Total Protein 8.3(H) 6.0 - 8.0 g/dL LAB CHEMISTRY METHOD 04/22/2025 6:47 PM [facility] Albumin 3.6 3.2 - 5.0 g/dL LAB CHEMISTRY METHOD 04/22/2025 6:47 PM [facility] Total Bilirubin 0.4 0.0 - 1.4 mg/dL LAB CHEMISTRY METHOD 04/22/2025 6:47 PM [facility] Blood Venous blood specimen / Unknown Venipuncture / Unknown 04/22/2025 1:57 PM EDT 04/22/2025 3:39 PM EDT Kem SCANLON LAB BLOOD ORDERABLES Final R esult [facility] [address] [place] [address], [place] [phone] * Lipid panel with reflex to direct LDL (12/04/2024 9:51 AM EST) Cholesterol 141 0 - 200 mg/dL LAB CHEMISTRY METHOD 12/04/2024 11:33 AM EST [facility] Triglycerides 126 0 - 150 mg/dL LAB CHEMISTRY METHOD 12/04/2024 11:33 AM EST [facility] HDL 45 >=40 mg/dL LAB CHEMISTRY METHOD 12/04/2024 11:33 AM [facility] LDL Calculated 71 0 - 100 mg/dL LAB CHEMISTRY METHOD 12/04/2024 11:33 AM EST [facility] VLDL Cholesterol Leoncio 25.2 mg/dL LAB CHEMISTRY METHOD 12/04/2024 11:33 AM EST [facility] Non HDL Chol. (LDL+VLDL) 96 <145 mg/dL LAB CHEMISTRY METHOD 12/04/2024 11:33 AM EST [facility] Chol/HDL Ratio 3.1 0.0 - 4.4 LAB CHEMISTRY METHOD 12/04/2024 11:33 AM [facility] Blood Venous blood specimen / Unknown Venipuncture / Unknown 12/04/2024 9:51 AM EST 12/04/2024 10:26 AM EST Enrique Mendoza MD LAB BLOOD ORDERABLES Final Re sult Performing Organization Address [facility]/ZIP Co de Phone Number [facility] [address] [place] [address], [place] [phone] * HITESH SCREENING DIGITAL (01/26/2024 10:43 AM EDT) Anatomical Region Laterality Modality Mammography 01/26/2024 10:0 4 AM EDT Narrative 01/26/2024 10:43 AM EDT [facility] Diagnostic Imaging Department [address] [place] [address] Patient: JLBRENDANJUAN CARLOSO.B./Age/Sex: 1960 - 63 - F Unit#: [id number] Location/Status: SPDIMA/REG CLI Mnemonic/Ordering Site: [facility] Ordering Physician: MAGDALENO LAW MD [facility] [place] [facility] - 01/26/24 - 1022 Report Status:Signed EXAM: [facility] [place] [facility] EXAM DATE AND TIME: 01/26/2024 10:23 AM HISTORY: Annual screening COMPARISON: Multiple exams dating back to 2018 TECHNIQUE: Bilateral digital breast tomosynthesis was performed in the CC and MLO projections. Computer aided detection with Kippt 3D 3.1 was employed. TISSUE DENSITY: b. [...] screening mammogram BILATERAL in 1 year. 3341F, 7036F Dictating Physician: PEREZ KOROMA MD Electronically Signed by: PEREZ KOROMA MD Dic Date/Time: 01/26/24 1042 Sign date/Time: 01/26/24 1043 Procedure Note Perez Koroma MD - 05/28/2024 [facility] Diagnostic Imaging Department [address] [place] [address] Patient: JLBRENDANJUAN CARLOSO.B./Age/Sex: 1960 - 63 - F Unit#: [id number] Location/Status: SPDIMA/[facility] CLI Mnemonic/Ordering Site: [facility] Ordering Physician: MAGDALENO LAW MD [facility] [place] [facility] - 01/26/24 - 1022 Report Status:Signed EXAM: [facility] [place] [facility] Digital EXAM DATE AND TIME: 01/26/2024 10:23 AM HISTORY: Annual screening COMPARISON: Multiple exams dating back to 2018 TECHNIQUE: Bilateral digital breast tomosynthesis was performed in the CCand MLO projections. Computer aided detection with Kippt 3D 3.1was employed. TISSUE DENSITY: b. There [...] or Most Recently Relevant to Health Maintenance Additional Health Concerns Active Problems Noted Date Diagnosed Date Autogenerated Problem 07/08/2025 Insurance [facility] [employer] Care Teams Bilingual Office Assistant Relationship Specialty Start Date End Date Magdaleno Law MD [address] [place] [address] PCP - General Internal Medicine 10/12/24
--- OUTSIDE RECORDS SUMMARY | 2025-08-14 12:08 | XMS_ITS | Encounter Summary ---
Author Organization [facility] Address [address] [place] [address] Care Team Providers Care Director Of Philanthropy Name Role Phone Magdaleno Law MD Primary Care Provider [phone] Encounter Details Date Type Department Care Team ([facility] Contact Info) Description 07/30/2025 Results Follow-Up Gastroenterology - 299 [facility] 299 [facility] [address] [place] [phone] Manuel Moore MD [address] [address] Social History Tobacco Use Types Packs/Day Years [...] Upcoming Encounters Date Type Department Care Team ([facility] Contact Info) Description 09/30/2025 10:00 AM EST Office Visit Orthopedic Surgery - [place] [address] [address] Arnold Coto DPM [address] [place] [phone] 01/21/2026 10:00 AM EDT Office Visit Gastroenterology - [address] [place] [address] [phone] Harmony Howell, YARELI [address] [address] documented as of this encounter Goals Goal Patient Goal Type Associated Problems Recent Progress Patient-Stated? Author Autogenera sonia Goal Care Plan Autogenerated Problem No Anali Portillo documented as of this encounter Visit Diagnoses Not on filedocumented in this encounter Additional Health Concerns Active Problems Noted Date Diagnosed Date Autogenerated Problem 07/08/2025 documented as of this encounter Care Teams Director Of Philanthropy Relationship Specialty Start Date End Date Magdaleno Law MD [address] [place] [address] PCP - General Internal Medicine 10/12/24 documented as of this encounter
--- OUTSIDE RECORDS SUMMARY | 2025-08-14 12:08 | XMS_ITS | Encounter Summary ---
Author Organization [facility] Address [address] [place] [address] Care Team Providers Care Fish Cutting Machine Operator Name Role Phone Magdaleno Law MD Primary Care Provider [phone] Encounter Details Date Type Department Care Team (Late Contact Info) Description 09/08/2024 Lab Requisition [facility] 299 [facility] [place] [phone] Manuel Moore MD 299 [facility] [address] [place] [address] Abnormal results of liver function studies Social [...] Department Care Team (Late Contact Info) Description 09/30/2025 10:00 AM EST Office Visit Orthopedic Surgery - [place] 250 175 [facility] [address] [place] [address] Arnold Coto DPM [address] [place] [phone] 01/21/2026 10:00 AM EDT Office Visit Gastroenterology - [address] [place] 299 [facility] [address] [place] [phone] Harmony Howell NP 299 [facility] [address] [place] [address] documented as of this encounter Procedures Procedure [...] 2:03 PM [facility] Blood Venous blood specimen / Unknown 09/08/2024 1:20 PM EST 09/08/2024 1:20 PM EST us Manuel Moore MD LAB BLOOD ORDERABLES Final Result [facility] [address] [place] [address], [place] [phone] documented in this encounter Visit Diagnoses Diagnosis Abnormal results of liver function studies Nonspecific abnormal results of liver function study documented in this encounter Care Teams Fish Cutting Machine Operator Relationship Specialty Start Date End Date Magdaleno Law MD [address] [place] [address] PCP - General Internal Medicine 10/12/24 documented as of this encounter
--- OUTSIDE RECORDS SUMMARY | 2025-08-14 12:08 | XMS_ITS | Encounter Summary ---
Author Organization [facility] Address [address] [place] [address] Care Team Providers Care Property Valuer Name Role Phone Magdaleno Law MD Primary Care Provider [phone] Encounter Details Date Type Department Care Team ([facility] Contact Info) Description 08/07/2025 Results Follow-Up Gastroenterology [facility] 175 [facility] 175 [facility] [address] [place] [phone] Manuel Moore MD 299 [facility] [address] [place] [address] Social History Tobacco Use Types Packs/Day Years [...] Upcoming Encounters Date Type Department Care Team ([facility] Contact Info) Description 09/30/2025 10:00 AM EST Office Visit Orthopedic Surgery [facility] 250 175 [facility] 250 [place] [phone] Arnold Coto, DPIker [address] [place] [address] 01/21/2026 10:00 AM EDT Office Visit Gastroenterology - [address] [place] [address] [phone] Harmony Howell, YARELI [address] [address] documented as of this encounter Goals Goal Patient Goal Type Associated Problems Recent Progress Patient-Stated? Author Autogenera sonia Goal Care Plan Autogenerated Problem No Anali Portillo documented as of this encounter Visit Diagnoses Not on filedocumented in this encounter Additional Health Concerns Active Problems Noted Date Diagnosed Date Autogenerated Problem 07/08/2025 documented as of this encounter Care Teams Property Valuer Relationship Specialty Start Date End Date Magdaleno Law MD [address] [place] [address] PCP - General Internal Medicine 10/12/24 documented as of this encounter
--- OUTSIDE RECORDS SUMMARY | 2025-08-14 12:08 | XMS_ITS | Encounter Summary ---
Author Organization [facility] [place] [address] Care Team Providers Care Sorter Laundry Articles Name Role Phone Magdaleno Law MD Primary Care Provider [phone] Encounter Details Date Type Department Care Team ([facility] Contact Info) Description 08/05/2025 Results Follow-Up Gastroenterology - 299 [facility] 299 [facility] [address] [place] [address] Manuel Moore MD [address] [address] Social History Tobacco Use Types Packs/Day Years [...] Upcoming Encounters Date Type Department Care Team ([facility] Contact Info) Description 09/30/2025 10:00 AM EST Office Visit Orthopedic Surgery [facility] [address] [address] Arnold Coto DPIker [address] [place] [address] 01/21/2026 10:00 AM EDT Office Visit Gastroenterology - [address] [place] [address] [phone] Harmony Howell, YARELI [address] [address] documented as of this encounter Goals Goal Patient Goal Type Associated Problems Recent Progress Patient-Stated? Author Autogenera sonia Goal Care Plan Autogenerated Problem No Anali Portillo documented as of this encounter Visit Diagnoses Not on filedocumented in this encounter Additional Health Concerns Active Problems Noted Date Diagnosed Date Autogenerated Problem 07/08/2025 documented as of this encounter Care Teams Sorter Laundry Articles Relationship Specialty Start Date End Date Magdaleno Law MD [address] [place] [address] PCP - General Internal Medicine 10/12/24 documented as of this encounter
== END 2025-08-14 11:00 | disposition home or self-care (01) ==
LOC: HO.ENCR 10:24
PROVIDERS: PCP Internal Medicine; Visit Provider Internal Medicine
DX: E11.65 Type 2 diabetes mellitus with hyperglycemia (principal)

== ENCOUNTER → 2025-08-14 10:23 | Outpatient (BNVA) | payer OTHER, SELFPAY | PROVIDERS: PCP Internal Medicine; Visit Provider Internal Medicine | DX: E11.65 Type 2 diabetes mellitus with hyperglycemia (principal) | CPT/HCPCS: 82947; 83036; 99212 ==

== ENCOUNTER 2025-08-14 11:04 | Outpatient (REF) | payer OTHER, SELFPAY ==
[2025-08-14 14:01] LABS: Hemoglobin A1C 174.5311 umol/L; Total Hemoglobin (HGBA1C) 3360.4987 umol/L
[2025-08-14 14:14] LABS: Microalbum/Creatinine Ratio Ur 73.8 ug/mg cr (<30)
[2025-08-14 14:15] LABS: Alanine Aminotransferase 65 U/L (0-31); Albumin Level 4.3 g/dL (3.5-5.0); Alkaline Phosphatase 127 U/L (39-117); Anion Gap 11 (12-20); Aspartate Amino Transferase 63 U/L (5-31); Blood Urea Nitrogen 18 mg/dL (9-16); Calcium 9.3 mg/dL (8.4-10.2); Carbon Dioxide 27 mmol/L (22-29); Chloride 104 mmol/L (96-108); Cholesterol 245 mg/dL (<200); Estimated Glomerular Filt Rate > 60; HDL Cholesterol 45 mg/dL (>40); Potassium 4.4 mmol/L (3.3-5.1); Sodium 138 mmol/L (135-145); Total Protein 8.4 g/dL (6.5-8.0); Triglycerides 173 mg/dL (<150)
== END 2025-08-14 11:05 | disposition home or self-care (01) ==
LOC: HO.10HDL 11:04
PROVIDERS: Visit Provider Internal Medicine
DX: E11.65 Type 2 diabetes mellitus with hyperglycemia (principal); I10 Essential (primary) hypertension; E78.5 Hyperlipidemia, unspecified
CPT/HCPCS: 36415; 80053; 80061; 82043; 82570; 83036; 84443